=== PATIENT | male | born 1960 | race Caucasian/White ===

== ENCOUNTER 2020-08-26 11:01 | Outpatient (REF) | payer MEDICARE, MEDICAID, SELFPAY | END 2020-08-26 11:02 | disposition home or self-care (01) | LOC: HO.LAB 11:01 | PROVIDERS: Visit Provider Internal Medicine | DX: Z20.822 Contact with and (suspected) exposure to COVID-19 (principal) | CPT/HCPCS: 36415; C9803; U0003; U0005 ==

== ENCOUNTER 2020-09-29 13:37 | Outpatient (REF) | payer MEDICARE, MEDICAID, SELFPAY ==
[2020-09-29 14:22] LABS: MANUAL DIFF FLAG NO
[2020-09-29 14:28] LABS: Basophils Absolute Auto 0.1 X10*3/uL (0.0-0.2); Basophils Percent Auto 0.6 % (0-2); Eosinophils Absolute Auto 0.4 X10*3/uL (0.0-0.4); Eosinophils Percent Auto 3.3 % (0-4); Hematocrit 45.3 % (42-52); Hemoglobin 15.5 g/dl (14.0-18.0); Imm Gran Abs Auto 0.05 X10*3/uL (0.00-0.03); Imm Gran Pct Auto 0.4 % (0.0-0.4); Lymphocytes Absolute Auto 2.9 X10*3/uL (1.2-4.9); Lymphocytes Percent Auto 22.9 % (20-40); Mean Corpuscular HGB Conc 34.2 g/dl (31.0-36.0); Mean Corpuscular Hemoglobin 32.5 pg (27.0-33.0); Mean Platelet Volume 12.2 fL (9.4-12.4); Monocytes Absolute Auto 0.7 X10*3/uL (0.1-1.2); Monocytes Percent Auto 5.4 % (2-11); Neutrophils Absolute Auto 8.6 X10*3/uL (2.0-8.3); Neutrophils Percent Auto 67.4 % (45-73); Platelet Count 253 X10*3/uL (160-400); Red Blood Count 4.77 X10*6/uL (4.60-5.80); Red Cell Distribution Width 14.5 % (11.0-16.0); White Blood Count 12.8 X10*3/uL (4.8-10.8)
[2020-09-29 14:44] LABS: Anion Gap 15 (12-20); Blood Urea Nitrogen 21 mg/dL (9-16); Calcium 9.2 mg/dL (8.4-10.2); Carbon Dioxide 31 mmol/L (22-29); Chloride 100 mmol/L (96-108); Estimated Glomerular Filt Rate > 60; Glucose Random 143 mg/dL (60-115); Potassium 4.6 mmol/L (3.3-5.1); Sodium 141 mmol/L (135-145)
[2020-09-29 15:06] LABS: Thyroid Stimulating Hormone 1.08 uIU/mL (0.32-4.0)
== END 2020-09-29 13:38 | disposition home or self-care (01) ==
LOC: HO.LAB 13:37
PROVIDERS: PCP Internal Medicine; Visit Provider Internal Medicine
DX: Z00.00 Encounter for general adult medical examination without abnormal findings (principal); R51.9 Headache, unspecified; E03.9 Hypothyroidism, unspecified
CPT/HCPCS: 36415; 80048; 84443; 85025

== ENCOUNTER 2021-01-14 09:16 | Outpatient (REF) | payer MEDICARE, MEDICAID, SELFPAY ==
[2021-01-14 10:29] LABS: Estimated Average Glucose 146 mg/dL; Hemoglobin A1c % 6.7 %
[2021-01-14 10:39] LABS: Glucose Fasting 131 mg/dL (60-99)
== END 2021-01-14 09:17 | disposition home or self-care (01) ==
LOC: HO.LAB 09:16
PROVIDERS: PCP Internal Medicine; Visit Provider Internal Medicine
DX: E11.65 Type 2 diabetes mellitus with hyperglycemia (principal)
CPT/HCPCS: 36415; 82947; 83036

== ENCOUNTER 2021-10-01 12:16 | Outpatient (REF) | payer MEDICARE, MEDICAID, SELFPAY ==
[2021-10-01 12:45] LABS: MANUAL DIFF FLAG NO
[2021-10-01 12:54] LABS: Basophils Absolute Auto 0.1 X10*3/uL (0.0-0.2); Basophils Percent Auto 0.7 % (0-2); Eosinophils Absolute Auto 0.2 X10*3/uL (0.0-0.4); Eosinophils Percent Auto 2.2 % (0-4); Hematocrit 39.6 % (42.0-52.0); Hemoglobin 13.6 g/dl (14.0-18.0); Imm Gran Abs Auto 0.03 X10*3/uL (0.00-0.03); Imm Gran Pct Auto 0.3 % (0.0-0.4); Lymphocytes Absolute Auto 3.1 X10*3/uL (1.2-4.9); Lymphocytes Percent Auto 27.8 % (20-40); Mean Corpuscular HGB Conc 34.3 g/dl (31.0-36.0); Mean Corpuscular Hemoglobin 31.9 pg (27.0-33.0); Mean Corpuscular Volume 92.7 fL (80.0-98.0); Mean Platelet Volume 11.6 fL (9.4-12.4); Monocytes Absolute Auto 0.9 X10*3/uL (0.1-1.2); Neutrophils Absolute Auto 6.7 x10*3/uL (2.0-8.3); Platelet Count 225 X10*3/uL (160-400); Red Blood Count 4.27 X10*6/uL (4.60-5.80); Red Cell Distribution Width 15.2 % (11.0-16.0)
[2021-10-01 13:15] LABS: Estimated Average Glucose 120 mg/dL; Hemoglobin A1c % 5.8 %
[2021-10-01 13:55] LABS: Alanine Aminotransferase 132 U/L (0-40); Albumin Level 3.9 g/dL (3.5-5.0); Alkaline Phosphatase 57 U/L (39-117); Anion Gap 14 (12-20); Aspartate Amino Transferase 71 U/L (5-37); Bilirubin Total 0.3 mg/dL (0.0-1.0); Blood Urea Nitrogen 24 mg/dL (9-16); C Reactive Protein 0.71 mg/dL (< or = 0.50); Calcium 9.9 mg/dL (8.4-10.2); Carbon Dioxide 26 mmol/L (22-29); Chloride 106 mmol/L (96-108); Cholesterol 163 mg/dL; Estimated Glomerular Filt Rate > 60; Glucose Fasting 85 mg/dL (60-99); HDL Cholesterol 32 mg/dL; Iron 56 mcg/dL (45-160); LDL Cholesterol Calculated 109 mg/dl; Magnesium 2.1 mg/dL (1.6-2.6); Percent Iron Saturation 22 % (15-50); Potassium 4.5 mmol/L (3.3-5.1); Sodium 141 mmol/L (135-145); Total Iron Binding Capacity 257 mcg/dL (228-428); Total Protein 7.4 g/dL (6.5-8.0); Triglycerides 111 mg/dL; Unsaturated Iron Binding 201 ug/dL
[2021-10-01 14:01] LABS: Folate 19.4 ng/mL (> or = 4.0); Vitamin B12 428 pg/mL (200-900)
== END 2021-10-01 12:17 | disposition home or self-care (01) ==
LOC: HO.LAB 12:16
PROVIDERS: PCP Internal Medicine; Visit Provider Nurse Practitioner Family
DX: Z00.00 Encounter for general adult medical examination without abnormal findings (principal); I63.9 Cerebral infarction, unspecified; E11.40 Type 2 diabetes mellitus with diabetic neuropathy, unspecified
CPT/HCPCS: 36415; 80053; 80061; 82607; 82746; 83036; 83540; 83735; 84100; 85025; 86140

== ENCOUNTER 2022-06-30 14:00 | Outpatient (REF) | payer MEDICARE, MEDICAID, SELFPAY ==
[2022-06-30 14:11] LABS: MANUAL DIFF FLAG NO
[2022-06-30 16:02] LABS: Basophils Absolute Auto 0.1 X10*3/uL (0.0-0.2); Basophils Percent Auto 0.9 % (0-2); Eosinophils Absolute Auto 0.5 X10*3/uL (0.0-0.4); Eosinophils Percent Auto 3.9 % (0-4); Hematocrit 37.3 % (42.0-52.0); Hemoglobin 12.2 g/dl (14.0-18.0); Imm Gran Abs Auto 0.06 X10*3/uL (0.00-0.03); Imm Gran Pct Auto 0.5 % (0.0-0.4); Lymphocytes Absolute Auto 2.8 X10*3/uL (1.2-4.9); Lymphocytes Percent Auto 23.7 % (20-40); Mean Corpuscular HGB Conc 32.7 g/dl (31.0-36.0); Mean Corpuscular Volume 91.9 fL (80.0-98.0); Mean Platelet Volume 11.6 fL (9.4-12.4); Monocytes Absolute Auto 0.8 X10*3/uL (0.1-1.2); Monocytes Percent Auto 6.4 % (2-11); Neutrophils Absolute Auto 7.6 x10*3/uL (2.0-8.3); Neutrophils Percent Auto 64.6 % (45-73); Platelet Count 267 X10*3/uL (160-400); Red Blood Count 4.06 X10*6/uL (4.60-5.80); Red Cell Distribution Width 15.6 % (11.0-16.0); White Blood Count 11.7 X10*3/uL (4.8-10.8)
[2022-06-30 16:14] LABS: Estimated Average Glucose 97 mg/dL
[2022-06-30 16:58] LABS: Alanine Aminotransferase 37 U/L (0-40); Albumin Level 3.4 g/dL (3.5-5.0); Alkaline Phosphatase 79 U/L (39-117); Anion Gap 13 (12-20); Aspartate Amino Transferase 32 U/L (5-37); Bilirubin Total 0.2 mg/dL (0.0-1.0); Blood Urea Nitrogen 28 mg/dL (9-16); Calcium 8.7 mg/dL (8.4-10.2); Carbon Dioxide 28 mmol/L (22-29); Chloride 103 mmol/L (96-108); Cholesterol 146 mg/dL; Estimated Glomerular Filt Rate > 60; Glucose Fasting 137 mg/dL (60-99); Glucose Random 137 mg/dL (60-115); HDL Cholesterol 26 mg/dL; LDL Cholesterol Calculated 74 mg/dl; Potassium 4.4 mmol/L (3.3-5.1); Sodium 140 mmol/L (135-145); Thyroid Stimulating Hormone 1.38 uIU/mL (0.32-4.0); Total Protein 6.7 g/dL (6.5-8.0); Triglycerides 230 mg/dL
== END 2022-06-30 14:01 | disposition home or self-care (01) ==
LOC: HO.LAB 14:00
PROVIDERS: PCP Internal Medicine; Visit Provider Internal Medicine
DX: Z13.0 Encounter for screening for diseases of the blood and blood-forming organs and certain disorders involving the immune mechanism (principal); E11.9 Type 2 diabetes mellitus without complications; E03.9 Hypothyroidism, unspecified; I10 Essential (primary) hypertension; E78.5 Hyperlipidemia, unspecified
CPT/HCPCS: 36415; 80048; 80053; 80061; 83036; 84443; 85025

== ENCOUNTER 2022-07-12 12:12 | Outpatient (REF) | payer MEDICARE, MEDICAID, SELFPAY ==
--- NOTE | ~2022-07-12 | XR_ITS ---
EXAMINATION: CR X-RAY KNEES BILATERAL STANDING, RIGHT KNEE 2 VIEW CLINICAL INFORMATION: Knee pain. COMPARISON: 02/12/2019 knee radiographs. TECHNIQUE: A single view of the bilateral knees standing as well as 2 views of the right knee were obtained. FINDINGS: The patient is status post medial femoral-tibial arthroplasty showing good anatomic alignment and no evidence for hardware malfunction. Mild degenerative joint changes are seen. There is no acute fracture or dislocation. There is no joint effusion. The soft tissues are unremarkable. Moderate to severe atherosclerosis is noted. XR/XR knee RT 2V IMPRESSION: Degenerative joint changes bilaterally. No hardware abnormality. No acute fracture. No significant change.
--- NOTE | ~2022-07-12 | XR_ITS ---
EXAMINATION: CR X-RAY KNEES BILATERAL STANDING, RIGHT KNEE 2 VIEW CLINICAL INFORMATION: Knee pain. COMPARISON: 02/12/2019 knee radiographs. TECHNIQUE: A single view of the bilateral knees standing as well as 2 views of the right knee were obtained. FINDINGS: The patient is status post medial femoral-tibial arthroplasty showing good anatomic alignment and no evidence for hardware malfunction. Mild degenerative joint changes are seen. There is no acute fracture or dislocation. There is no joint effusion. The soft tissues are unremarkable. Moderate to severe atherosclerosis is noted. XR/XR knee standing BI IMPRESSION: Degenerative joint changes bilaterally. No hardware abnormality. No acute fracture. No significant change.
== END 2022-07-12 12:13 | disposition home or self-care (01) ==
LOC: HO.HOSX 12:12
PROVIDERS: Visit Provider Orthopaedic Surgery
DX: M25.561 Pain in right knee (principal); M25.562 Pain in left knee; I10 Essential (primary) hypertension; Z86.73 Personal history of transient ischemic attack (TIA), and cerebral infarction without residual deficits; Z96.651 Presence of right artificial knee joint
CPT/HCPCS: 73560; 73565; 99202

== ENCOUNTER 2022-12-24 12:44 | Emergency (ER) | payer MEDICARE, MEDICAID, SELFPAY ==
--- NOTE | ~2022-12-24 | XR_ITS ---
EXAMINATION: XR CHEST CLINICAL INFORMATION: Chest pain COMPARISON: 11/17/2018 TECHNIQUE: 2 views of the chest were obtained. FINDINGS: Mild opacity at the right base laterally may represent a subtle area of infiltrate. Otherwise lung bryan are felt to be grossly clear. The cardiac silhouette is comparable. There is no failure. The hilar regions do not appear pathologically enlarged. Degenerative change in the thoracic spine. No compression injury. XR/XR chest 2V IMPRESSION: Minimal right lower lobe lateral opacity could represent small area of infiltrate or atelectasis. Attention to follow-up
--- NOTE | 2022-12-24 12:57 | ECG_ITS ---
Test Reason : CHEST PAIN Blood Pressure : / mmHG Vent. Rate : 070 BPM Atrial Rate : 070 BPM P-R Int : 142 ms QRS Dur : 142 ms QT Int : 410 ms P-R-T Axes : 065 -42 008 degrees QTc Int : 442 ms Normal sinus rhythm Left axis deviation Right bundle branch block Possible Lateral infarct (cited on or before 17-NOV-2018) Abnormal ECG When compared with ECG of 17-NOV-2018 16:53, Questionable change in initial forces of Anterior leads T wave inversion now evident in Anterior leads Referred By: Denisa Harvey Electronically Signed By:NIYAH PARTIDA
[2022-12-24 13:05] VITALS: BP 118/76; BP 155/73; PULSE 60; PULSE 69; RESP 17; TEMP 36.4; O2SAT 99; BMI 29.6
[2022-12-24 14:16] VITALS: BP 143/69; PULSE 78; RESP 18; TEMP 36.4; O2SAT 99
[2022-12-24] MEDS: Aspirin Enteric Coated 325 MG TABLET.DR PO (14:20)
--- NOTE | 2022-12-24 14:21 | PC.NURSE ---
pt refused nitroglycerin tab. says it does not help him and gives him headaches
--- NOTE | 2022-12-24 14:29 | ED.CHESTPAIN ---
HPI - Chest Pain General Chief Complaint: Chest Pain Stated Complaint: chest pain Time Seen by Provider: 12/24/22 13:42 Source: patient Mode of arrival: ambulatory History of Present Illness HPI narrative: 62 yold male with pmh of DM, GERD, and HTN and stent presents to the ED with chest pain since 3am. patient denies any leg swelling/calf pain/pleurisy, drug use, or URI symptoms. Related Data Home Medications Medication Instructions Recorded Confirmed blood-glucose meter #1 ea 06/11/20 12/24/22 amlodipine 5 mg tablet 5 mg PO DAILY 10/01/21 12/24/22 metoprolol tartrate 25 mg tablet 25 mg PO DAILY 10/01/21 12/24/22 tamsulosin 0.4 mg capsule 0.4 mg PO DAILY 12/17/21 12/24/22 silver sulfadiazine 1 % topical appl topical DAILY 06/10/22 12/24/22 cream hydrochlorothiazide 25 mg tablet 25 mg PO DAILY 09/10/22 12/24/22 metformin 500 mg tablet,extended 1,000 mg PO BID 09/10/22 12/24/22 release 24 hr Previous Rx's Medication Instructions Recorded polyethylene glycol 3350 17 gram 17 g PO DAILY #100 ea 07/16/20 oral powder packet (Miralax) insulin aspart U-100 100 unit/mL 5 unit (0.05 mL) subcut .COMPLEX 08/25/20 (3 mL) subcutaneous pen #15 mL hydrocortisone 2.5 % topical cream 1 appl GA BID-QID PRN hemorrhoids 10/30/20 with perineal applicator #30 grams (Anusol-HC) blood pressure monitor (Blood #1 ea 10/01/21 Pressure Kit) furosemide 20 mg tablet 20 mg PO DAILY #90 tabs 04/08/22 alcohol swabs 1 pad topical QID diabetes 08/02/22 mellitus #200 ea insulin detemir U-100 100 unit/mL 70 unit (0.7 mL) subcut DAILY #15 08/19/22 (3 mL) subcutaneous pen mL atorvastatin 80 mg tablet 80 mg PO DAILY #90 tabs 08/31/22 omeprazole 40 mg capsule,delayed 40 mg PO DAILY #90 caps 08/31/22 release albuterol sulfate 90 mcg/actuation 2 puff inhalation Q4-6H PRN 03/10/23 aerosol inhaler (Ventolin HFA) shortness of breath or wheezing #8.5 grams chair, wheel (Wheel chair) #1 ea 09/10/22 clopidogrel 75 mg tablet (Plavix) 75 mg PO DAILY #30 tabs 09/13/22 docusate sodium 100 mg capsule 100 mg PO BID #60 caps 09/13/22 lisinopril 10 mg tablet 10 mg PO DAILY #30 tabs 09/13/22 ticagrelor 90 mg tablet (Brilinta) 90 mg PO BID #60 tabs 09/13/22 hydralazine 25 mg tablet 25 mg PO DAILY #90 tabs 10/11/22 adult pull ups #120 ea 10/27/22 lidocaine 5 % topical patch 1 patch topical DAILY #30 ea 10/27/22 pregabalin 150 mg capsule 150 mg PO BID #60 caps 10/28/22 blood sugar diagnostic (FreeStyle #100 strips 10/29/22 Lite Strips) ascorbic acid (vitamin C) 500 mg 500 mg PO DAILY #90 tabs 11/22/22 tablet aspirin 81 mg chewable tablet 1 tab PO DAILY #90 tabs 11/22/22 multivitamin with folic acid 400 1 tab PO DAILY #90 tabs 11/22/22 mcg tablet (Tab-A-Bob) pen needle, diabetic 31 gauge x #50 ea 11/22/2209/16 oxycodone-acetaminophen 5 mg-325 1 tab PO Q8H PRN pain 28 days #84 12/03/22 mg tablet tabs adult briefs #2 12/17/22 chux pads #2 12/17/22 hospital bed #1 12/21/22 doxycycline hyclate 100 mg capsule 100 mg PO BID 7 days #14 [facility] 12/24/22 oxycodone 5 mg capsule 5 mg PO TID PRN pain 3 days #9 [facility] 12/24/22 Allergies Allergy/AdvReac Type Severity Reaction Status Date / Time Penicillins Allergy Intermediate ITCHING/SWE Verified 12/24/22 13:24 LLING Review of Systems Review of Systems: LEft sided chest pain since 3 am. Yes all other systems are reviewed and are negative PMFSH Past Medical History Medical History Back pain Constipation Diabetes mellitus Diabetes mellitus with neuropathy Hyperlipidemia Knee pain, bilateral Obesity Surgical History History of CVA (cerebrovascular accident) History of hemorrhoidectomy History of neck surgery History of surgery History of total right knee replacement (~2012) History of tympanoplasty Family History Family History Father Medical history unknown Mother HIV (human immunodeficiency virus infection) Social History Social History Housing: Apartment Alcohol intake: never Patient Tobacco Use Status: Never used Tobacco Smoked in Last 30 Days: No e-Cigarette/Vaping Use: Never Used Second Hand Smoke Exposure: No Use of substances other than those prescribed or required for medical reasons: No Advance Directives: No Advance Directives Information Provided: Yes service: No Current occupational status: disabled Cognitive needs: Yes (Pt has a walker) Hearing needs: No Vision needs: Yes (Blurred vision) Physical Exam Vital Signs: Vital Signs: Last Vital Signs Temp 97.9 F 12/24/22 17:43 Pulse 75 12/24/22 17:43 Resp 19 12/24/22 17:43 BP 137/51 L 12/24/22 17:43 Pulse Ox 98 12/24/22 17:43 O2 Del Method Room Air 12/24/22 17:43 O2 Flow Rate 1 12/24/22 15:50 Oxygen Flow Rate 2 12/24/22 13:05 BMI result Body Mass Index 29.6 Const: General: cooperative, healthy appearing, comfortable, no acute distress, well developed, alert and awake Orientation/consciousness: oriented to place and oriented to time HEENT: Head: Yes normal to inspection, Yes No palpable skull fracture present, Yes normocephalic and Yes atraumatic Eyes: General: appearance normal, both eyes and all related structures Neck: Neck: Yes normal visual inspection, Yes full ROM, Yes no lymphadenopathy, Yes no meningeal signs, Yes trachea midline, Yes supple, No anterior neck swelling and No tender Chest: Chest palpation & inspection: normal inspection of the chest and normal palpation of entire chest wall Resp: Effort & Inspection: normal respiratory effort and able to speak in complete sentences Auscultation: clear to auscultation bilaterally Cardio: Jugular venous distension: no JVD Heart sounds: S1 normal heart sound present and S2 normal heart sound present GI: Inspection: Yes normal to inspection and No abdominal wall ecchymosis Palpation (GI): Soft to palpation, not firm, nontender, no guarding and not rigid : General: No CVA tenderness and Yes no CVA tenderness Back/Spine/Pelvis: Back: no CVA tenderness, No CVA tenderness and No back tenderness Skin: General skin exam: no rashes or lesions noted and elasticity normal Neuro: General: oriented to place, oriented to time, tone normal, moves all extremities, Normal light touch and pain sensation, no meningeal signs, no focal motor deficits, CN's II-XI intact bilaterally and normal sensation to monofilament Extrem: Other: Positive for mild bilateral pitting edema that is chronic. no calf pain, erythema, or deformities. General: Yes normal to inspection and Yes full ROM Psych: Appearance: grossly normal, well kempt and not disheveled Course Course Course Narrative: Patient have cardiac workup. Patient states he took 81 mg of aspirin at home and took 2 nitro sublinguals at home. Reevaluation(s) Reevaluation #1: Patient given 1 more nitro sublingual at home. Patient given morphine. Patient on oxygen. Patient given aspirin 324. First troponin 72 BNP 279. Chest x-ray shows right small pneumonia. Awaiting 2nd troponin. Receive patient notes from recent cardiology visit and [facility] admission. Patient was discharged from [facility] Nov 23 2022. Patient has had multiple admissions for chest pain with cardiology thought was not due to cardiac pain. Patient had cardiac catheterization in July. Patient has had stents before in the past. As per [facility] note patient's CAD is not amenable to PCI or CABG. Patient given morphine. Patient baseline troponin at [facility] as per [facility] notes is 90. Time: 17:00 Medications Administered Discontinued Medications Generic Name Dose Route Start Last Admin Trade Name Brianne PRN Reason Stop Dose Admin Aspirin 325 mg 12/24/22 13:46 12/24/22 14:20 Aspirin Enteric Coated 325 Mg Tablet. PO 12/24/22 13:47 325 mg ONCE ONE Administration Morphine Sulfate 4 mg 12/24/22 15:13 12/24/22 16:04 Morphine Sulfate 4 Mg/Ml Cartridge IVPUSH 12/24/22 15:14 4 mg ONCE ONE Administration Protocol Nitroglycerin 0.4 mg 12/24/22 13:49 12/24/22 14:21 Nitroglycerin 0.4 Mg Tab.Subl SUBLINGUAL 12/24/22 13:50 Not Given ONCE ONE Medical Decision Making Medical Decision Making MDM Narrative: 62-year-old male with history of diabetes, hypertension, stent placed in the past due to STEMI presents to ED for left-sided chest pain. States no recent trauma, fever, or chills. Patient denies any nausea vomiting. Patient taking aspirin and nitroglycerins at home. Patient given morphine and other nitroglycerin and aspirin 324 during ED visit. Patient vital signs are stable. Patient's troponin is negative for delta change of 50%. EKG from [place] compared to EKG at [facility] recent hospital admission in November negative for any new changes. Chest x-ray shows right-sided pneumonia. Atypical chest presentation. Case was discussed with Dr. Brumfield Push Connector Assembler and supervising attending Dr. Andrade. They agree patient to follow up next week with his miller head. Patient will be discharged with antibiotics and treat as pneumonia. Differential Diagnosis Differential Diagnoses: The differential diagnosis associated with the presentation includes (CHF, pneumonia, PE, myocardial infarction, STEMI,) Admission/Observation Consideration of admission/observation: Escalation of care including admission/observation considered Consult Healthcare Provider Management of the patient was discussed with: Cutter [employer] (Dr. Br[facility]field [facility]) Lab Data MDM Lab Attestation statement: I reviewed the patient's lab results. 12/24/22 14:31 12/24/22 14:31 Labs: Lab Results 12/24/22 12/24/22 12/24/22 Range/Units 14:31 14:31 14:31 WBC 12.7 H (4.8-10.8) X10*3/uL RBC 3.68 L (4.60-5.80) X10*6/uL Hgb 11.0 L (14.0-18.0) g/dl Hct 33.7 L (42.0-52.0) % MCV 91.6 (80.0-98.0) fL MCH 29.9 (27.0-33.0) pg MCHC 32.6 (31.0-36.0) g/dl RDW 17.2 H (11.0-16.0) % Plt Count 296 (160-400) X10*3/uL MPV 11.4 (9.4-12.4) fL Immature Gran % (Auto) 0.6 H (0.0-0.4) % Neut % (Auto) 70.8 (45-73) % Lymph % (Auto) 16.8 L (20-40) % [place] % (Auto) 8.9 (2-11) % Eos % (Auto) 2.4 (0-4) % Baso % (Auto) 0.5 (0-2) % Lymph # (Auto) 2.1 (1.2-4.9) X10*3/uL [place] # (Auto) 1.1 (0.1-1.2) X10*3/uL Eos # (Auto) 0.3 (0.0-0.4) X10*3/uL Baso # (Auto) 0.1 (0.0-0.2) X10*3/uL Abs Immat Gran (auto) 0.07 H (0.00-0.03) X10*3/uL Absolute Neuts (auto) 9.0 H (2.0-8.3) x10*3/uL Absolute Nucleated RBC 0.000 (0.0-0.012) X10*3/uL Nucleated RBC % (auto) 0.0 (0.0-0.2) /100WBC PT (10.0-13.1) SEC INR (0.9-1.1) APTT (26.0-36.4) SEC Sodium 142 (135-145) mmol/L Potassium 4.0 (3.3-5.1) mmol/L Chloride 102 (96-108) mmol/L Carbon Dioxide 28 (22-29) mmol/L Anion Gap 16 (12-20) BUN 66 H (9-16) mg/dL Creatinine 1.30 (0.5-1.4) mg/dL Estim Creat Clear Calc 52.3 Estimated GFR 56 Random Glucose 139 H (60-115) mg/dL Calcium 9.6 D (8.4-10.2) mg/dL Magnesium 2.4 (1.6-2.6) mg/dL Total Bilirubin 0.3 (0.0-1.0) mg/dL AST 14 (5-37) U/L ALT 15 (0-40) U/L Alkaline Phosphatase 89 (39-117) U/L Troponin I High Sens 71.2 H (<3.5-35.0) ng/L B-Natriuretic Peptide (<100) pg/mL Total Protein 7.3 (6.5-8.0) g/dL Albumin 3.3 L (3.5-5.0) g/dL COVID-19 (TY) (Negative) COVID-19 Clin Com 12/24/22 12/24/22 12/24/22 Range/Units 14:31 14:31 15:17 WBC (4.8-10.8) X10*3/uL RBC (4.60-5.80) X10*6/uL Hgb (14.0-18.0) g/dl Hct (42.0-52.0) % MCV (80.0-98.0) fL MCH (27.0-33.0) pg MCHC (31.0-36.0) g/dl RDW (11.0-16.0) % Plt Count (160-400) X10*3/uL MPV (9.4-12.4) fL Immature Gran % (Auto) (0.0-0.4) % Neut % (Auto) (45-73) % Lymph % (Auto) (20-40) % [place] % (Auto) (2-11) % Eos % (Auto) (0-4) % Baso % (Auto) (0-2) % Lymph # (Auto) (1.2-4.9) X10*3/uL [place] # (Auto) (0.1-1.2) X10*3/uL Eos # (Auto) (0.0-0.4) X10*3/uL Baso # (Auto) (0.0-0.2) X10*3/uL Abs Immat Gran (auto) (0.00-0.03) X10*3/uL Absolute Neuts (auto) (2.0-8.3) x10*3/uL Absolute Nucleated RBC (0.0-0.012) X10*3/uL Nucleated RBC % (auto) (0.0-0.2) /100WBC PT 10.6 (10.0-13.1) SEC INR 0.9 (0.9-1.1) APTT 30.2 (26.0-36.4) SEC Sodium (135-145) mmol/L Potassium (3.3-5.1) mmol/L Chloride (96-108) mmol/L Carbon Dioxide (22-29) mmol/L Anion Gap (12-20) BUN (9-16) mg/dL Creatinine (0.5-1.4) mg/dL Estim Creat Clear Calc Estimated GFR Random Glucose (60-115) mg/dL Calcium (8.4-10.2) mg/dL Magnesium (1.6-2.6) mg/dL Total Bilirubin (0.0-1.0) mg/dL AST (5-37) U/L ALT (0-40) U/L Alkaline Phosphatase (39-117) U/L Troponin I High Sens (<3.5-35.0) ng/L B-Natriuretic Peptide 279 H (<100) pg/mL Total Protein (6.5-8.0) g/dL Albumin (3.5-5.0) g/dL COVID-19 (TY) Negative (Negative) COVID-19 Clin Com See Note 12/24/22 Range/Units 16:31 WBC (4.8-10.8) X10*3/uL RBC (4.60-5.80) X10*6/uL Hgb (14.0-18.0) g/dl Hct (42.0-52.0) % MCV (80.0-98.0) fL MCH (27.0-33.0) pg MCHC (31.0-36.0) g/dl RDW (11.0-16.0) % Plt Count (160-400) X10*3/uL MPV (9.4-12.4) fL Immature Gran % (Auto) (0.0-0.4) % Neut % (Auto) (45-73) % Lymph % (Auto) (20-40) % [place] % (Auto) (2-11) % Eos % (Auto) (0-4) % Baso % (Auto) (0-2) % Lymph # (Auto) (1.2-4.9) X10*3/uL [place] # (Auto) (0.1-1.2) X10*3/uL Eos # (Auto) (0.0-0.4) X10*3/uL Baso # (Auto) (0.0-0.2) X10*3/uL Abs Immat Gran (auto) (0.00-0.03) X10*3/uL Absolute Neuts (auto) (2.0-8.3) x10*3/uL Absolute Nucleated RBC (0.0-0.012) X10*3/uL Nucleated RBC % (auto) (0.0-0.2) /100WBC PT (10.0-13.1) SEC INR (0.9-1.1) APTT (26.0-36.4) SEC Sodium (135-145) mmol/L Potassium (3.3-5.1) mmol/L Chloride (96-108) mmol/L Carbon Dioxide (22-29) mmol/L Anion Gap (12-20) BUN (9-16) mg/dL Creatinine (0.5-1.4) mg/dL Estim Creat Clear Calc Estimated GFR Random Glucose (60-115) mg/dL Calcium (8.4-10.2) mg/dL Magnesium (1.6-2.6) mg/dL Total Bilirubin (0.0-1.0) mg/dL AST (5-37) U/L ALT (0-40) U/L Alkaline Phosphatase (39-117) U/L Troponin I High Sens 80.9 H (<3.5-35.0) ng/L B-Natriuretic Peptide (<100) pg/mL Total Protein (6.5-8.0) g/dL Albumin (3.5-5.0) g/dL COVID-19 (TY) (Negative) COVID-19 Clin Com Independent Interpretation I performed an independent interpretation of an: EKG (Normal sinus rhythm. Ventricular rate 70. GA interval 142. QRS 142. QTC 442. Negative STEMI ) and Plain X-Ray Radiology Impression Discussion of test interpretation with radiology: I have reviewed the radiologist's reading. External Record Review External record reviewed: Outpatient record ([facility] cardiology office notes and recent admission.) Prescription Management I considered prescription management with: Pain Medication and Antibiotic Chronic Conditions Patient?s care impacted by: Diabetes and Hypertension Discharge Plan Discharge Clinical Impression: Chest pain, atypical, Pneumonia Patient Disposition: Home, Self-Care Instructions: Chest Pain (ED), Chest Pain (DC), Community Acquired Pneumonia (ED) Additional Instructions: You will be discharged with antibiotics. Please follow-up with your primary care provider and miller head next week. Return to the ED immediately for any calf pain, coughing up blood, chest pain on inspiration, worsening chest pain, weakness, dizziness, fever, chills, or any other concerning symptoms. Prescriptions: New doxycycline hyclate 100 mg capsule 100 mg PO BID 7 Days Qty: 14 0RF oxycodone 5 mg capsule 5 mg PO TID PRN (Reason: pain) 3 Days Qty: 9 0RF Rx Instructions: Partial Fill upon patient request. No Action insulin aspart U-100 100 unit/mL (3 mL) insulin pen 5 unit subcut .COMPLEX Qty: 15 8RF Rx Instructions: 5 units subcut q 6 hours; furosemide 20 mg tablet 20 mg PO DAILY Qty: 90 8RF alcohol swabs Pads, Medicated 1 pad topical QID Qty: 200 8RF insulin detemir U-100 100 unit/mL (3 mL) insulin pen 70 unit subcut DAILY Qty: 15 7RF omeprazole 40 mg capsule,delayed release(DR/EC) 40 mg PO DAILY Qty: 90 8RF atorvastatin 80 mg tablet 80 mg PO DAILY Qty: 90 8RF clopidogrel [Plavix] 75 mg tablet 75 mg PO DAILY Qty: 30 0RF lisinopril 10 mg tablet 10 mg PO DAILY Qty: 30 8RF Brilinta 90 mg tablet 90 mg PO BID Qty: 60 3RF docusate sodium 100 mg capsule 100 mg PO BID Qty: 60 5RF hydralazine 25 mg tablet 25 mg PO DAILY Qty: 90 0RF lidocaine 5 % adhesive patch,medicated 1 patch topical DAILY Qty: 30 3RF Rx Instructions: leave on most painful area for up to 12 hrs (DME) adult pull ups Medium See Rx Instructions .Route .MEDSUPPLY Qty: 120 0RF Rx Instructions: As directed pregabalin 150 mg capsule 150 mg PO BID Qty: 60 0RF (DME) FreeStyle Lite Strips Strip See Rx Instructions .ROUTE .COMPLEX Qty: 100 0RF Dose Instruction: USE TO CHECK TWICE DAILY Rx Instructions: USE TO CHECK TWICE DAILY ascorbic acid (vitamin C) 500 mg tablet 500 mg PO DAILY Qty: 90 8RF (DME) pen needle, diabetic 31 gauge x 3/16 needle See Rx Instructions .ROUTE .MEDSUPPLY Qty: 50 8RF Rx Instructions: As directed aspirin 81 mg tablet,chewable 1 tab PO DAILY Qty: 90 8RF multivitamin with folic acid [Tab-A-Bob] 400 mcg tablet 1 tab PO DAILY Qty: 90 8RF oxycodone-acetaminophen 5-325 mg tablet 1 tab PO Q8H PRN (Reason: pain) 28 Days Qty: 84 0RF Rx Instructions: #84 for 28 days. PARTIAL FILL UPON PATIENT REQUEST -- covering for Dr. Mena - ONE-TIME Rx only (DME) adult briefs large See Rx Instructions .Route .MEDSUPPLY Qty: 2 11RF Rx Instructions: As directed (DME) chux pads See Rx Instructions .Route .MEDSUPPLY Qty: 2 11RF Rx Instructions: As directed ([facility] [place]) hospital bed Kit See Rx Instructions .Route Qty: 1 0RF Rx Instructions: As directed (DME) blood-glucose meter Kit See Rx Instructions .ROUTE QID Qty: 1 Rx Instructions: As directed polyethylene glycol 3350 [Miralax] 17 gram powder in packet 17 g PO DAILY Qty: 100 3RF metoprolol tartrate 25 mg tablet 25 mg PO DAILY amlodipine 5 mg tablet 5 mg PO DAILY (DME) blood pressure monitor [Blood Pressure Kit] Kit See Rx Instructions .Route Qty: 1 0RF Rx Instructions: As directed hydrocortisone [Anusol-HC] 2.5 % cream with perineal applicator 1 appl GA BID-QID PRN (Reason: hemorrhoids) Qty: 30 3RF tamsulosin 0.4 mg capsule 0.4 mg PO DAILY silver sulfadiazine 1 % cream topical DAILY hydrochlorothiazide 25 mg tablet 25 mg PO DAILY metformin 500 mg tablet extended release 24 hr 1,000 mg PO BID albuterol sulfate [Ventolin HFA] 90 mcg/actuation HFA aerosol inhaler 2 puff inhalation Q4-6H PRN (Reason: shortness of breath or wheezing) Qty: 8.5 5RF (DME) Wheel chair Kit See Rx Instructions .Route Qty: 1 0RF Rx Instructions: As directed Interventions: ED Discharge Assessment Last Done: 12/24/22 19:20 Discharge Date/Time: 12/24/22 19:21 Print Language: Portuguese
[2022-12-24 14:36] LABS: MANUAL DIFF FLAG NO
[2022-12-24 14:40] LABS: Basophils Absolute Auto 0.1 X10*3/uL (0.0-0.2); Basophils Percent Auto 0.5 % (0-2); Eosinophils Absolute Auto 0.3 X10*3/uL (0.0-0.4); Eosinophils Percent Auto 2.4 % (0-4); Hematocrit 33.7 % (42.0-52.0); Imm Gran Abs Auto 0.07 X10*3/uL (0.00-0.03); Imm Gran Pct Auto 0.6 % (0.0-0.4); Lymphocytes Absolute Auto 2.1 X10*3/uL (1.2-4.9); Lymphocytes Percent Auto 16.8 % (20-40); Mean Corpuscular HGB Conc 32.6 g/dl (31.0-36.0); Mean Corpuscular Hemoglobin 29.9 pg (27.0-33.0); Mean Corpuscular Volume 91.6 fL (80.0-98.0); Mean Platelet Volume 11.4 fL (9.4-12.4); Monocytes Absolute Auto 1.1 X10*3/uL (0.1-1.2); Monocytes Percent Auto 8.9 % (2-11); Neutrophils Percent Auto 70.8 % (45-73); Platelet Count 296 X10*3/uL (160-400); Red Blood Count 3.68 X10*6/uL (4.60-5.80); Red Cell Distribution Width 17.2 % (11.0-16.0); White Blood Count 12.7 X10*3/uL (4.8-10.8)
[2022-12-24 14:54] LABS: IDNOW Serial# BCCEAD1C
[2022-12-24 14:55] LABS: COVID-19 Test Negative (Negative)
[2022-12-24 14:59] LABS: Alanine Aminotransferase 15 U/L (0-40); Albumin Level 3.3 g/dL (3.5-5.0); Alkaline Phosphatase 89 U/L (39-117); Anion Gap 16 (12-20); Aspartate Amino Transferase 14 U/L (5-37); Bilirubin Total 0.3 mg/dL (0.0-1.0); Blood Urea Nitrogen 66 mg/dL (9-16); Calcium 9.6 mg/dL (8.4-10.2); Carbon Dioxide 28 mmol/L (22-29); Chloride 102 mmol/L (96-108); Creatinine Clr Calc Pharmacy 52.3; Estimated Glomerular Filt Rate 56; Glucose Random 139 mg/dL (60-115); Magnesium 2.4 mg/dL (1.6-2.6); Sodium 142 mmol/L (135-145); Total Protein 7.3 g/dL (6.5-8.0)
[2022-12-24 15:05] LABS: Troponin-I High Sensitivity 71.2 ng/L (<3.5-35.0)
[2022-12-24 15:11] LABS: B Type Natriuretic Peptide 279 pg/mL (<100)
[2022-12-24 15:29] LABS: INTERNATIONAL NORM RATIO 0.9 (0.9-1.1); Prothrombin Time 10.6 SEC (10.0-13.1)
[2022-12-24 15:32] LABS: Partial Thromboplastin Time 30.2 SEC (26.0-36.4)
[2022-12-24 15:50] VITALS: BP 154/65; PULSE 78; RESP 15; TEMP 36.4; O2SAT 100
[2022-12-24] MEDS: Morphine Sulfate 4 MG/ML CARTRIDGE IVPUSH (16:04)
--- NOTE | 2022-12-24 16:20 | MHC.EDTECH ---
pt undressed and placed into hospital clothes. pt cleaned and bed linens changed. allevyn dressing placed above the buttocks, initialed and dated. warm blanket given and call light placed within reach
--- NOTE | 2022-12-24 16:22 | MHC.EDTECH ---
this PCT and another PCT changed patient to hospital attire,cleaned up allevyn padding applied to skin,per RN order.
[2022-12-24 17:20] VITALS: BP 136/61; PULSE 80; RESP 14; TEMP 36.5; O2SAT 100
[2022-12-24 17:35] LABS: Troponin-I High Sensitivity 80.9 ng/L (<3.5-35.0)
[2022-12-24 17:43] VITALS: BP 137/51; PULSE 75; RESP 19; TEMP 36.6; O2SAT 98
== END 2022-12-24 19:21 | disposition home or self-care (01) ==
PROVIDERS: Physician Assistant; Physician Assistant Medical; Emergency Provider Emergency Medicine
DX: J18.9 Pneumonia, unspecified organism (principal); R07.89 Other chest pain; R06.02 Shortness of breath; Z79.899 Other long term (current) drug therapy; Z20.822 Contact with and (suspected) exposure to COVID-19; Z20.828 Contact with and (suspected) exposure to other viral communicable diseases
CPT/HCPCS: 36415; 71046; 80053; 83735; 83880; 84484; 85025; 85610; 85730; 87635; 93005; 96374; 99284; 99285; J2270

== ENCOUNTER 2023-01-05 14:48 | Outpatient (REF) | payer MEDICARE, MEDICAID, SELFPAY | END 2023-01-05 14:49 | disposition home or self-care (01) | LOC: HO.LAB 14:48 | PROVIDERS: PCP Internal Medicine; Visit Provider Internal Medicine | DX: Z13.89 Encounter for screening for other disorder (principal) ==

== ENCOUNTER 2023-01-19 15:32 | Outpatient (AMB) | payer MEDICARE, MEDICAID, SELFPAY ==
[2023-01-19 15:34] VITALS: BP 94/54; PULSE 85
--- NOTE | 2023-01-19 15:34 | A.OFFVIS_ITS ---
Intake Vital Signs 01/19/23 15:34 Height 5 ft BMI Reason not done Patient refused/unable BP 94/54 L Blood Pressure Location Rt brachial Position Sitting Pulse 85 Intake Visit Reasons: Hemorrhage rectum Intake Note: This patient presents for an assessment for rectal bleeding. Patient c/o; Onset 1 1/2 months, rectal bleeding, constipation. Channel Machine Operator Required: No Accompanied by: CLINICAL EXERCISE PHYSIOLOGIST Allergies Penicillins Allergy (Intermediate, Verified 01/19/23 15:40) ITCHING/SWELLING Medication List - Last Reconciled 01/19/23 by Darian Fraire MD [adult briefs As directed] [adult pull ups As directed] albuterol sulfate 90 mcg/actuation (Ventolin HFA) 2 puffs inhalation Q4-6H PRN alcohol swabs 1 pad topical QID amlodipine 5 mg PO DAILY ascorbic acid (vitamin C) 500 mg PO DAILY aspirin 1 tab PO DAILY atorvastatin 80 mg PO DAILY blood pressure monitor (Blood Pressure Kit) As directed blood sugar diagnostic (FreeStyle Lite Strips) USE TO CHECK TWICE DAILY blood-glucose meter As directed chair, wheel (Wheel chair) As directed [chux pads As directed] ciprofloxacin HCl (Cipro) 250 mg PO BID clopidogrel (Plavix) 75 mg PO DAILY docusate sodium 100 mg PO BID doxycycline hyclate 100 mg PO BID 7 days furosemide 20 mg PO DAILY hospital bed As directed hydralazine 25 mg PO DAILY hydrochlorothiazide 25 mg PO DAILY hydrocortisone 2.5% (Anusol-HC) 1 appl [place] BID-QID PRN insulin aspart U-100 5 units subcut q 6 hours; insulin detemir U-100 70 units (0.7 mL) subcut DAILY lidocaine 5% 1 patch topical DAILY lisinopril 10 mg PO DAILY metformin ER 1,000 mg PO BID metoprolol tartrate 25 mg PO DAILY multivitamin with folic acid 400 mcg (Tab-A-Bob) 1 tab PO DAILY omeprazole 40 mg PO DAILY oxycodone 5 mg PO TID PRN 3 days oxycodone-acetaminophen 5-325 mg 1 tab PO Q8H PRN 28 days pen needle, diabetic As directed polyethylene glycol 3350 (Miralax) 17 grams PO DAILY pregabalin 150 mg PO BID silver sulfadiazine 1% appl topical DAILY tamsulosin 0.4 mg PO DAILY ticagrelor (Brilinta) 90 mg PO BID HPI Hemorrhage rectum HPI Details 62-year-old male referred for bleeding per rectum. He has noticed this for about a year now. He says that this is seen when he has a bowel movement and after. He says that this is seen on wiping as well as on the commode He is wheelchair bound because of weakness of both lower extremities. He said he has been wheelchair-bound for about a year. He says that he has hemorrhoids for many years. He states that he had surgery for his hemorrhoids in the distant past He only has 1 bowel movement a week. This is because of him being sure bound with a very poor baseline level of function. He He has multiple medical problems including coronary disease, status post stenting, hypertension, diabetes, hyperlipidemia, smoking and obstructive sleep apnea. He had history of anterior STEMI requiring cardiac catheterization, lad stent and balloon angioplassty last August,. He says he is not on any anticoagulant but of his med list show he is on Brilinta. He denies any pain in his anus. [facility] Medical History Back pain Constipation Diabetes mellitus Diabetes mellitus with neuropathy Hyperlipidemia Knee pain, bilateral Obesity Surgical History History of CVA (cerebrovascular accident) History of hemorrhoidectomy History of neck surgery History of surgery History of total right knee replacement (~2012) History of tympanoplasty Family History Father Medical history unknown Mother HIV (human immunodeficiency virus infection) Social History Housing: Apartment Alcohol intake: never Patient Tobacco Use Status: Never used Tobacco e-Cigarette/Vaping Use: Never Used Second Hand Smoke Exposure: No service: No Current occupational status: disabled Cognitive needs: Yes (Pt has a walker) Hearing needs: No Vision needs: Yes (Blurred vision) Review of Systems Const Denies chills and Denies fever(s) Card Denies chest pain, Denies dyspnea and Denies dyspnea on exertion Resp Denies cough, Denies dyspnea and Denies dyspnea on exertion GI Reports hematochezia, Denies change in bowel habits and Reports constipation Denies hematuria and Denies difficulty urinating Musc Details: Unable to walk, is on a wheelchair for a long history of severe muscle weakness of both lower extremities with neuropathy Denies limited range of motion and Reports muscle weakness Neuro Denies focal weakness and Denies convulsions Psych Denies depression and Denies mood swings Physical Exam Vital Signs: Last Vital Signs Pulse 85 01/19/23 15:34 BP 94/54 L 01/19/23 15:34 Const Other: On wheelchair General: comfortable and no acute distress Orientation/consciousness: patient oriented x3 Neck Neck: Yes no lymphadenopathy Resp Auscultation: clear to auscultation bilaterally Cardio Rhythm: regular rhythm GI Other: Rectal exam shows small external hemorrhoids no fissure Palpation (GI): Soft to palpation, nontender and no guarding Neuro General: patient oriented x3 Extrem Other: Poor muscle strength on both lower extremities common able to bear weight Office Procedures Anoscopy He was in left lateral bo-knife and decubitus position. The anoscope was gently inserted. A full examination of the anal canal was done. Small hemorrhoids, internal external were seen. There was no lesion noted there was no fissure. There was no blood. There was no induration on digital exam. [id number] Assessment & Plan Assessment & Plan (1) Rectal bleeding: Code(s): K62.5 - Hemorrhage of anus and rectum Plan: This is seen on the commode as well as on wiping and is described to be bright blood. This is likely to be from an outlet source with this hemorrhoids. He states however that has never had any colonoscopy in the past. I did explain to him this option to rule out any proximal source. He has a significant multiple medical conditions and if he decides to proceed with colonoscopy, he has to be cleared by his primary care physician and industrial waste inspector 1st. He understands this and says he will discuss this with this primary care physician. Coding Level of Care Code New Pt Level 4 (65163) Diagnoses Rectal bleeding K62.5 CPT Codes Details - CPT: 11970-[id number] ([id number])
== END 2023-01-19 15:56 | disposition home or self-care (01) ==
PROVIDERS: PCP Internal Medicine; Referring Provider Internal Medicine; Visit Provider Surgery
DX: K62.5 Hemorrhage of anus and rectum (principal)
CPT/HCPCS: 46600; 99204

== ENCOUNTER → 2023-01-19 15:32 | Outpatient (BNVA) | payer MEDICARE, MEDICAID, SELFPAY | PROVIDERS: PCP Internal Medicine; Referring Provider Internal Medicine; Visit Provider Surgery | DX: K62.5 Hemorrhage of anus and rectum (principal) | CPT/HCPCS: 46600; 99202 ==

== ENCOUNTER 2023-01-24 13:01 | Outpatient (AMB) | payer MEDICARE, MEDICAID, SELFPAY ==
--- NOTE | 2023-01-24 13:10 | MHC.PC.OV ---
Vital Signs 01/24/23 13:11 Height 5 ft BMI Reason not done Patient refused/unable BP 130/78 Blood Pressure Location Rt brachial Pulse 75 Pulse Source Pulse Oximeter Pulse Oximetry (%) 99 Oxygen Delivery Method Room Air Intake [place] [facility] [place], 2+ pitting edema in feet Intake Note: Patient is here for hospital discharge follow up. Patient was [place] [facility] [place] Client Development Consultant Required: No Energy Systems Engineer: Present Accompanied by: CAR ICER Allergies Penicillins Allergy (Intermediate, Verified 01/24/23 13:11) ITCHING/SWELLING Medication List - Last Reconciled 01/24/23 by Neri Mena MD [adult briefs As directed] [adult pull ups As directed] albuterol sulfate 90 mcg/actuation (Ventolin HFA) 2 puffs inhalation Q4-6H PRN alcohol swabs 1 pad topical QID amlodipine 5 mg PO DAILY ascorbic acid (vitamin C) 500 mg PO DAILY aspirin 1 tab PO DAILY atorvastatin 80 mg PO DAILY blood pressure monitor (Blood Pressure Kit) As directed blood sugar diagnostic (FreeStyle Lite Strips) USE TO CHECK TWICE DAILY blood-glucose meter As directed chair, wheel (Wheel chair) As directed [chux pads As directed] ciprofloxacin HCl (Cipro) 250 mg PO BID clopidogrel (Plavix) 75 mg PO DAILY docusate sodium 100 mg PO BID doxycycline hyclate 100 mg PO BID 7 days furosemide 20 mg PO DAILY hospital bed As directed hydralazine 25 mg PO DAILY hydrochlorothiazide 25 mg PO DAILY hydrocortisone 2.5% (Anusol-HC) 1 appl [place] BID-QID PRN insulin aspart U-100 5 units subcut q 6 hours; insulin detemir U-100 70 units (0.7 mL) subcut DAILY lidocaine 5% 1 patch topical DAILY lisinopril 10 mg PO DAILY metformin ER 1,000 mg PO BID metoprolol tartrate 25 mg PO DAILY multivitamin with folic acid 400 mcg (Tab-A-Bob) 1 tab PO DAILY omeprazole 40 mg PO DAILY oxycodone 5 mg PO TID PRN 3 days oxycodone-acetaminophen 5-325 mg 1 tab PO Q8H PRN 28 days pen needle, diabetic As directed polyethylene glycol 3350 (Miralax) 17 grams PO DAILY pregabalin 150 mg PO BID silver sulfadiazine 1% appl topical DAILY tamsulosin 0.4 mg PO DAILY ticagrelor (Brilinta) 90 mg PO BID Tobacco use date assessed: 01/24/23 Dental Screening Dental Screen Date: 01/24/23 Did you have a dental visit in the last 12 months?: Yes Did you have a dental problem in the last 6 months where you did not have access to dental care?: No Was dental information given to patient?: Patient has dentist [place] [facility] [place], 2+ pitting edema in feet HPI Details [place] [facility] [place] with nephroloih causing some degree of renal impairment; records pending [facility] Medical History Back pain Constipation Diabetes mellitus Diabetes mellitus with neuropathy Hyperlipidemia Knee pain, bilateral Obesity Surgical History History of CVA (cerebrovascular accident) History of hemorrhoidectomy History of neck surgery History of surgery History of total right knee replacement (~2012) History of tympanoplasty Family History Father Medical history unknown Mother HIV (human immunodeficiency virus infection) Social History Housing: Apartment Alcohol intake: never Patient Tobacco Use Status: Never used Tobacco e-Cigarette/Vaping Use: Never Used Second Hand Smoke Exposure: No service: No Current occupational status: disabled Cognitive needs: Yes (Pt has a walker) Hearing needs: No Vision needs: Yes (Blurred vision) Questionnaire PHQ-9 Over the last 2 weeks, how often have you been bothered by any of the following problems? Depression Screening Interpretation: Positive Source: Developed by Drs. Kyle Morin, Sarika Reardon, Hubert Nicholas and colleagues, with an educational luis from [employer]. Thrive Questionnaire Date Thrive assessed: 01/05/23 KAILEE-7 AMB Questionnaire KAILEE-7 Date KAILEE - 7 assessed: 01/05/23 Source: Developed by Drs. Kyle Morin, Sarika Reardon, Hubert Nicholas and colleagues, with an educational luis from [employer]. Review of Systems Const Denies chills, Denies headache(s) and Denies weight loss ENT Denies headache(s) Card Denies chest pain, Denies syncope, Denies irregular heart rhythm and Denies dyspnea Resp Denies chest congestion, Denies cough and Denies dyspnea GI Denies abdominal pain, Denies change in stool character, Denies nausea and Denies vomiting Musc Denies deformity and Denies joint swelling Neuro Denies syncope and Denies headache(s) Physical exam (Primary Care) Vital Signs: Last Vital Signs Pulse 75 01/24/23 13:11 BP 130/78 01/24/23 13:11 Pulse Ox 99 01/24/23 13:11 Oxygen Delivery Method Room Air 01/24/23 13:11 Tobacco/Smoking Status: Tobacco use Status Tobacco use date assessed 01/24/23 01/24/23 13:15 Patient Tobacco Use Status Never used Tobacco 01/24/23 13:15 e-Cigarette/Vaping Use Never Used 01/24/23 13:15 Depression Screening Interpretation: Positive Thrive Assessment: Date of Thrive Assessment Date Thrive assessed 01/05/23 01/24/23 13:15 Const General: cooperative, healthy appearing and no acute distress Orientation/consciousness: oriented to person, oriented to place and oriented to time HENMT Head: Yes normal to inspection, Yes normocephalic and Yes atraumatic Mouth: Normal oral and palatal mucosa present and tongue normal Throat: Yes posterior oropharynx normal and Yes uvula midline Eyes General: appearance normal, both eyes and all related structures Neck Neck: Yes normal visual inspection, Yes full ROM and Yes no lymphadenopathy Thyroid: Thyroid normal Carotids: normal carotid upstroke Chest Chest palpation & inspection: normal inspection of the chest Resp Effort & Inspection: normal respiratory effort and able to speak in complete sentences Auscultation: clear to auscultation bilaterally Cardio Jugular venous distension: no JVD Palpation: normal PMI Rate: regular rate Rhythm: regular rhythm Heart sounds: S1 normal heart sound present and S2 normal heart sound present GI Inspection: Yes normal to inspection Palpation (GI): Soft to palpation and No hepatosplenomegaly present Auscultation: normal bowel sounds General: Yes no CVA tenderness Back/Spine/Pelvis Back: no CVA tenderness Skin General skin exam: no rashes or lesions noted Neuro General: oriented to person, oriented to place and oriented to time Extrem General: Yes normal to inspection and Yes full ROM Assessment and Plan Assessment & Plan (1) Nephrolithiasis: Code(s): N20.0 - Calculus of kidney Plan: ref urol Orders: Orders Basic Metabolic Panel Today N28.9 - Disorder of kidney and ureter, unspecified Referrals Urology Referral N20.0 - Calculus of kidney Coding Level of Care Code Est Pt Level 3 (58270) Diagnoses Nephrolithiasis N20.0
[2023-01-24 13:11] VITALS: BP 130/78; PULSE 75; O2SAT 99
== END 2023-01-24 13:35 | disposition home or self-care (01) ==
PROVIDERS: PCP Internal Medicine; Visit Provider Internal Medicine
DX: N20.0 Calculus of kidney (principal)
CPT/HCPCS: 99213

== ENCOUNTER 2023-01-24 13:29 | Outpatient (REF) | payer MEDICARE, MEDICAID, SELFPAY ==
[2023-01-24 14:49] LABS: Anion Gap 13 (12-20); Blood Urea Nitrogen 54 mg/dL (9-16); Calcium 8.9 mg/dL (8.4-10.2); Carbon Dioxide 26 mmol/L (22-29); Chloride 104 mmol/L (96-108); Estimated Glomerular Filt Rate 47; Glucose Random 92 mg/dL (60-115); Potassium 4.3 mmol/L (3.3-5.1); Sodium 139 mmol/L (135-145)
== END 2023-01-24 13:30 | disposition home or self-care (01) ==
LOC: HO.LAB 13:29
PROVIDERS: PCP Internal Medicine; Visit Provider Internal Medicine
DX: N28.9 Disorder of kidney and ureter, unspecified (principal)
CPT/HCPCS: 36415; 80048

== ENCOUNTER 2023-02-14 14:30 | Outpatient (AMB) | payer MEDICARE, MEDICAID, SELFPAY ==
--- NOTE | 2023-02-14 14:33 | A.OFFPC_ITS ---
Vital Signs 02/14/23 14:34 Height 5 ft BMI Reason not done Patient refused/unable BP 140/70 H Blood Pressure Location Rt brachial Position Sitting Pulse 68 Pulse Source Pulse Oximeter Pulse Oximetry (%) 97 Oxygen Delivery Method Room Air Intake Visit Reasons: HD [facility] 02/02/23-Stroke Intake Note: Patient is here for hospital discharge follow up. Patient was discharged from [facility] on 02/11/23. Production Team Manager Required: No Heavy Duty Custodian: Present Accompanied by: FACILITY ADMINISTRATOR Allergies Penicillins Allergy (Intermediate, Verified 02/14/23 14:33) ITCHING/SWELLING Medication List - Last Reconciled 02/15/23 by Neri Mena MD [adult briefs As directed] [adult pull ups As directed] albuterol sulfate 90 mcg/actuation (Ventolin HFA) 2 puffs inhalation Q4-6H PRN alcohol swabs 1 pad topical QID amlodipine 5 mg PO DAILY ascorbic acid (vitamin C) 500 mg PO DAILY aspirin 1 tab PO DAILY atorvastatin 80 mg PO DAILY blood pressure monitor (Blood Pressure Kit) As directed blood sugar diagnostic (FreeStyle Lite Strips) USE TO CHECK TWICE DAILY blood-glucose meter As directed chair, wheel (Wheel chair) As directed [chux pads As directed] ciprofloxacin HCl (Cipro) 250 mg PO BID clopidogrel (Plavix) 75 mg PO DAILY docusate sodium 100 mg PO BID doxycycline hyclate 100 mg PO BID 7 days furosemide 20 mg PO DAILY hospital bed As directed hydralazine 25 mg PO DAILY hydrochlorothiazide 25 mg PO DAILY hydrocortisone 2.5% (Anusol-HC) 1 appl [place] BID-QID PRN insulin aspart U-100 5 units subcut q 6 hours; insulin detemir U-100 70 units (0.7 mL) subcut DAILY lidocaine 5% 1 patch topical DAILY lisinopril 10 mg PO DAILY metformin ER 1,000 mg PO BID metoprolol tartrate 25 mg PO DAILY multivitamin with folic acid 400 mcg (Tab-A-Bob) 1 tab PO DAILY omeprazole 40 mg PO DAILY oxycodone 5 mg PO TID PRN 3 days oxycodone-acetaminophen 5-325 mg 1 tab PO Q8H PRN 28 days pen needle, diabetic As directed polyethylene glycol 3350 (Miralax) 17 grams PO DAILY pregabalin 150 mg PO BID silver sulfadiazine 1% appl topical DAILY Slide Board As directed tamsulosin 0.4 mg PO DAILY ticagrelor (Brilinta) 90 mg PO BID Tobacco use date assessed: 02/14/23 HPI HD [facility] 02/02/23-Stroke HPI Details cva at ; left arm and both leg paresis; getting home PT [facility] Medical History Back pain Constipation Diabetes mellitus Diabetes mellitus with neuropathy Hyperlipidemia Knee pain, bilateral Obesity Surgical History History of CVA (cerebrovascular accident) History of hemorrhoidectomy History of neck surgery History of surgery History of total right knee replacement (~2012) History of tympanoplasty Family History Father Medical history unknown Mother HIV (human immunodeficiency virus infection) Social History Housing: Apartment Alcohol intake: never Patient Tobacco Use Status: Never used Tobacco e-Cigarette/Vaping Use: Never Used Second Hand Smoke Exposure: No service: No Current occupational status: disabled Cognitive needs: Yes (Pt has a walker) Hearing needs: No Vision needs: Yes (Blurred vision) Questionnaire PHQ-9 Over the last 2 weeks, how often have you been bothered by any of the following problems? Depression Screening Interpretation: Positive Source: Developed by Drs. Kyle Morin, Sarika Reardon, Hubert Nicholas and colleagues, with an educational luis from [employer]. Thrive Questionnaire Date Thrive assessed: 01/05/23 KAILEE-7 AMB Questionnaire KAILEE-7 Date KAILEE - 7 assessed: 01/05/23 Source: Developed by Drs. Kyle Morin, Sarika Reardon, Hubert Nicholas and colleagues, with an educational luis from [employer]. Review of Systems Const Denies chills, Denies headache(s) and Denies weight loss ENT Denies headache(s) Card Denies chest pain, Denies syncope, Denies irregular heart rhythm and Denies dyspnea Resp Denies chest congestion, Denies cough and Denies dyspnea GI Denies abdominal pain, Denies change in stool character, Denies nausea and Denies vomiting Musc Denies deformity and Denies joint swelling Neuro Denies syncope and Denies headache(s) Physical exam (Primary Care) Vital Signs: Last Vital Signs Pulse 68 02/14/23 14:34 BP 140/70 H 02/14/23 14:34 Pulse Ox 97 02/14/23 14:34 Oxygen Delivery Method Room Air 02/14/23 14:34 Tobacco/Smoking Status: Tobacco use Status Tobacco use date assessed 02/14/23 02/14/23 14:38 Patient Tobacco Use Status Never used Tobacco 02/14/23 14:38 e-Cigarette/Vaping Use Never Used 02/14/23 14:38 Depression Screening Interpretation: Positive Thrive Assessment: Date of Thrive Assessment Date Thrive assessed 01/05/23 02/14/23 14:38 Const General: cooperative, healthy appearing and no acute distress Orientation/consciousness: oriented to person, oriented to place and oriented to time HENMT Head: Yes normal to inspection, Yes normocephalic and Yes atraumatic Mouth: Normal oral and palatal mucosa present and tongue normal Throat: Yes posterior oropharynx normal and Yes uvula midline Eyes General: appearance normal, both eyes and all related structures Neck Neck: Yes normal visual inspection, Yes full ROM and Yes no lymphadenopathy Thyroid: Thyroid normal Carotids: normal carotid upstroke Chest Chest palpation & inspection: normal inspection of the chest Resp Effort & Inspection: normal respiratory effort and able to speak in complete sentences Auscultation: clear to auscultation bilaterally Cardio Jugular venous distension: no JVD Palpation: normal PMI Rate: regular rate Rhythm: regular rhythm Heart sounds: S1 normal heart sound present and S2 normal heart sound present GI Inspection: Yes normal to inspection Palpation (GI): Soft to palpation and No hepatosplenomegaly present Auscultation: normal bowel sounds General: Yes no CVA tenderness Back/Spine/Pelvis Back: no CVA tenderness Skin General skin exam: no rashes or lesions noted Neuro General: oriented to person, oriented to place and oriented to time Extrem General: Yes normal to inspection and Yes full ROM Assessment and Plan Assessment & Plan (1) CVA (cerebral vascular accident): Code(s): I63.9 - Cerebral infarction, unspecified Plan: cont pt Coding Level of Care Code Est Pt Level 3 (85763) Diagnoses CVA (cerebral vascular accident) I63.9
[2023-02-14 14:34] VITALS: BP 140/70; PULSE 68; O2SAT 97
== END 2023-02-14 14:52 | disposition home or self-care (01) ==
PROVIDERS: PCP Internal Medicine; Visit Provider Internal Medicine
DX: I63.9 Cerebral infarction, unspecified (principal)
CPT/HCPCS: 99213

== ENCOUNTER 2023-04-12 10:43 | Outpatient (AMB) | payer MEDICARE, MEDICAID, SELFPAY ==
[2023-04-12 10:51] VITALS: BP 116/70; PULSE 59; O2SAT 98
--- NOTE | 2023-04-12 10:51 | MHC.PC.OV ---
Vital Signs 04/12/23 10:51 Height 5 ft BMI Reason not done Patient refused/unable BP 116/70 Blood Pressure Location Lt brachial Position Sitting Pulse 59 Pulse Source Pulse Oximeter Pulse Oximetry (%) 98 Oxygen Delivery Method Room Air Intake Visit Reasons: 3mth f/u Medications Programming Specialist: Not Required per policy Accompanied by: Self / Same As Patient Allergies Penicillins Allergy (Intermediate, Verified 04/12/23 10:51) ITCHING/SWELLING Medication List - Last Reconciled 04/12/23 by Neri Mena MD [adult briefs As directed] [adult pull ups As directed] albuterol sulfate 90 mcg/actuation (Ventolin HFA) 2 puffs inhalation Q4-6H PRN alcohol swabs 1 pad topical QID amlodipine 5 mg PO DAILY ascorbic acid (vitamin C) 500 mg PO DAILY aspirin 1 tab PO DAILY blood pressure monitor (Blood Pressure Kit) As directed blood sugar diagnostic (FreeStyle Lite Strips) USE TO CHECK TWICE DAILY blood-glucose meter As directed chair, wheel (Wheel chair) As directed [chux pads As directed] ciprofloxacin HCl (Cipro) 250 mg PO BID clopidogrel (Plavix) 75 mg PO DAILY clotrimazole-betamethasone 1-0.05 % 1 appl topical BID 2 weeks docusate sodium 100 mg PO BID doxycycline hyclate 100 mg PO BID 7 days furosemide 20 mg PO DAILY hospital bed As directed hydralazine 25 mg PO DAILY hydrochlorothiazide 25 mg PO DAILY hydrocortisone 2.5% (Anusol-HC) 1 appl MD BID-QID PRN insulin aspart U-100 5 units subcut q 6 hours; insulin detemir U-100 70 units (0.7 mL) subcut DAILY lidocaine 5% 1 patch topical DAILY lisinopril 10 mg PO DAILY metoprolol tartrate 25 mg PO DAILY multivitamin with folic acid 400 mcg (Tab-A-Bob) 1 tab PO DAILY omeprazole 40 mg PO DAILY oxycodone 5 mg PO TID PRN 3 days oxycodone-acetaminophen 5-325 mg 1 tab PO Q8H PRN 28 days pen needle, diabetic As directed polyethylene glycol 3350 (Miralax) 17 grams PO DAILY pregabalin 150 mg PO BID silver sulfadiazine 1% appl topical DAILY Slide Board As directed tamsulosin 0.4 mg PO DAILY ticagrelor (Brilinta) 90 mg PO BID Tobacco use date assessed: 02/14/23 Dental Screening Dental Screen Date: 04/12/23 Did you have a dental visit in the last 12 months?: Yes Did you have a dental problem in the last 6 months where you did not have access to dental care?: No Was dental information given to patient?: Patient has dentist HPI 3mth f/u Medications HPI Details HTN DM and BPH PFSH Medical History Knee pain, bilateral Back pain Obesity Diabetes mellitus with neuropathy Diabetes mellitus Constipation Hyperlipidemia Surgical History History of total right knee replacement (~2012) History of neck surgery History of hemorrhoidectomy History of surgery History of CVA (cerebrovascular accident) History of tympanoplasty Family History Father Medical history unknown Mother HIV (human immunodeficiency virus infection) Social History Housing: Apartment Alcohol intake: never Patient Tobacco Use Status: Never used Tobacco e-Cigarette/Vaping Use: Never Used Second Hand Smoke Exposure: No service: No Current occupational status: disabled Cognitive needs: Yes (Pt has a walker) Hearing needs: No Vision needs: Yes (Blurred vision) Questionnaire PHQ-9 Over the last 2 weeks, how often have you been bothered by any of the following problems? Depression Screening Interpretation: Positive Depression Screening Done: Yes Source: Developed by Drs. Kyle Morin, Hubert Soto and colleagues, with an educational luis from [employer]. Thrive Questionnaire Date Thrive assessed: 01/05/23 AUDIT C Alcohol Use Questionnaire (AUDIT-C) 1. How often do you have a drink containing alcohol?: Never 3. How often do you have six or more drinks on one occasion?: Never Total Score: 0 Score Reviewed/Action Taken: Yes KAILEE-7 AMB Questionnaire KAILEE-7 Date KAILEE - 7 assessed: 01/05/23 Source: Developed by Sarika Meneses Kurt Kroenke and colleagues, with an educational luis from [employer]. Review of Systems Const Denies chills, Denies headache(s) and Denies weight loss ENT Denies headache(s) Card Denies chest pain, Denies syncope, Denies irregular heart rhythm and Denies dyspnea Resp Denies chest congestion, Denies cough and Denies dyspnea GI Denies abdominal pain, Denies change in stool character, Denies nausea and Denies vomiting Musc Denies deformity and Denies joint swelling Neuro Denies syncope and Denies headache(s) Physical exam (Primary Care) Vital Signs: Last Vital Signs Pulse 59 04/12/23 10:51 BP 116/70 04/12/23 10:51 Pulse Ox 98 04/12/23 10:51 Oxygen Delivery Method Room Air 04/12/23 10:51 Tobacco/Smoking Status: Tobacco use Status Tobacco use date assessed 02/14/23 04/12/23 10:52 Patient Tobacco Use Status Never used Tobacco 04/12/23 10:52 e-Cigarette/Vaping Use Never Used 04/12/23 10:52 Depression Screening Interpretation: Positive Thrive Assessment: Date of Thrive Assessment Date Thrive assessed 01/05/23 04/12/23 10:52 Const General: cooperative, comfortable, no acute distress and alert Neck Neck: Yes no lymphadenopathy Thyroid: Thyroid normal Resp Effort & Inspection: normal respiratory effort Auscultation: clear to auscultation bilaterally Percussion: percussion normal Cardio Jugular venous distension: no JVD Palpation: normal PMI Rate: regular rate Rhythm: regular rhythm Heart sounds: S1 normal heart sound present and S2 normal heart sound present GI Inspection: Yes normal to inspection Palpation (GI): No hepatosplenomegaly present Skin General skin exam: no rashes or lesions noted Extrem General: Yes no clubbing, cyanosis or edema Assessment and Plan Assessment & Plan (1) Diabetes mellitus with neuropathy: Code(s): E11.40 - Type 2 diabetes mellitus with diabetic neuropathy, unspecified Plan: same rx; do labs (2) Hyperlipidemia: Code(s): E78.5 - Hyperlipidemia, unspecified Plan: stable; same rx (3) Hypertension: Code(s): I10 - Essential (primary) hypertension Plan: stable; same rx Orders: Referrals Podiatry Referral E11.40 - Type 2 diabetes mellitus with diabetic neuropathy, unspecified Neurology Referral R56.9 - Unspecified convulsions Coding Level of Care Code Est Pt Level 4 (68994) Diagnoses Diabetes mellitus with neuropathy E11.40 Hyperlipidemia E78.5 Hypertension I10
== END 2023-04-12 11:19 | disposition home or self-care (01) ==
PROVIDERS: PCP Internal Medicine; Visit Provider Internal Medicine
DX: E11.40 Type 2 diabetes mellitus with diabetic neuropathy, unspecified (principal); E78.5 Hyperlipidemia, unspecified; I10 Essential (primary) hypertension
CPT/HCPCS: 99214

== ENCOUNTER 2023-08-25 15:11 | Emergency (ER) | payer MEDICARE, MEDICAID, SELFPAY ==
--- NOTE | ~2023-08-25 | XR_ITS ---
EXAMINATION: XR CHEST CLINICAL INFORMATION: Altered mental status COMPARISON: 12/24/2022 TECHNIQUE: Frontal view of the chest was obtained. FINDINGS: Given AP portable technique, lungs are considered grossly clear. There is a skinfold overlying the left lower chest. Heart and pulmonary vessels are normal. There is degenerative change of both shoulders. XR/XR chest 1V IMPRESSION: No active disease given technical limitations.
[2023-08-25 15:26] VITALS: BP 96/36; PULSE 79; RESP 16; TEMP 36.6; O2SAT 99
--- NOTE | 2023-08-25 15:37 | ED.AMS ---
HPI - Altered Mental Status General Chief Complaint: Altered Mental Status Stated Complaint: UNRESPONSIVE FROM MD OFFICE PER EMS Time Seen by Provider: 08/25/23 15:26 Source: EMS Mode of arrival: EMS Limitations: altered mental status History of Present Illness HPI narrative: Patient recently discharged from the hospital, was at his PMD in the office and was found to be unresponsive, EMS was called MD complaint: decreased responsiveness Onset (ago): minute(s) Severity: severe Context: seizure disorder Related Data Home Medications Medication Instructions Recorded Confirmed blood-glucose meter #1 ea 06/11/20 04/12/23 amlodipine 5 mg tablet 5 mg PO DAILY 10/01/21 04/12/23 metoprolol tartrate 25 mg tablet 25 mg PO DAILY 10/01/21 04/12/23 tamsulosin 0.4 mg capsule 0.4 mg PO DAILY 12/17/21 04/12/23 silver sulfadiazine 1 % topical appl topical DAILY 06/10/22 04/12/23 cream hydrochlorothiazide 25 mg tablet 25 mg PO DAILY 09/10/22 04/12/23 Previous Rx's Medication Instructions Recorded insulin aspart U-100 100 unit/mL 5 unit (0.05 mL) subcut .COMPLEX 08/25/20 (3 mL) subcutaneous pen #15 mL blood pressure monitor (Blood #1 ea 10/01/21 Pressure Kit) alcohol swabs 1 pad topical QID diabetes 08/02/22 mellitus #200 ea omeprazole 40 mg capsule,delayed 40 mg PO DAILY #90 caps 08/31/22 release chair, wheel (Wheel chair) #1 ea 09/10/22 clopidogrel 75 mg tablet (Plavix) 75 mg PO DAILY #30 tabs 09/13/22 hydralazine 25 mg tablet 25 mg PO DAILY #90 tabs 10/11/22 adult pull ups #120 ea 10/27/22 blood sugar diagnostic (FreeStyle #100 strips 10/29/22 Lite Strips) ascorbic acid (vitamin C) 500 mg 500 mg PO DAILY #90 tabs 11/22/22 tablet aspirin 81 mg chewable tablet 1 tab PO DAILY #90 tabs 11/22/22 multivitamin with folic acid 400 1 tab PO DAILY #90 tabs 11/22/22 mcg tablet (Tab-A-Bob) pen needle, diabetic 31 gauge x #50 ea 11/22/2209/16 chux pads #2 ea 12/17/22 hospital bed #1 ea 12/21/22 doxycycline hyclate 100 mg capsule 100 mg PO BID 7 days #14 caps 12/24/22 oxycodone 5 mg capsule 5 mg PO TID PRN pain 3 days #9 caps 12/24/22 docusate sodium 100 mg capsule 100 mg PO BID #60 caps 01/18/23 polyethylene glycol 3350 17 gram 17 g PO DAILY #100 ea 01/18/23 oral powder packet (Miralax) Slide Board #1 ea 02/10/23 hydrocortisone 2.5 % topical cream 1 appl [place] BID-QID PRN hemorrhoids 02/15/23 with perineal applicator #30 grams (Anusol-HC) ciprofloxacin HCl 250 mg tablet 250 mg PO BID #10 tabs 02/18/23 (Cipro) adult briefs #2 ea 03/08/23 lidocaine 5 % topical patch 1 patch topical DAILY #30 ea 03/20/23 lisinopril 10 mg tablet 10 mg PO DAILY #30 tabs 03/21/23 insulin detemir U-100 100 unit/mL 70 unit (0.7 mL) subcut DAILY #15 03/30/23 (3 mL) subcutaneous pen mL clotrimazole-betamethasone 1 1 appl topical BID 2 weeks #45 03/31/23 %-0.05 % topical cream grams furosemide 20 mg tablet 20 mg PO DAILY #90 tabs 04/26/23 Grab bar #1 05/03/23 Slide Board #1 ea 05/03/23 Transfer Bench #1 05/03/23 shower bench #1 05/03/23 ticagrelor 90 mg tablet (Brilinta) 90 mg PO BID #60 tabs 05/11/23 ondansetron HCl 4 mg tablet 4 mg PO Q6H PRN nausea and 05/13/23 vomiting #30 tabs albuterol sulfate 90 mcg/actuation 2 puff inhalation Q4-6H PRN 07/27/23 aerosol inhaler (Ventolin HFA) shortness of breath or wheezing 30 days #8.5 grams pregabalin 150 mg capsule 150 mg PO BID #60 caps 08/01/23 oxycodone-acetaminophen 5 mg-325 1 tab PO Q8H PRN pain 28 days #84 02/02/24 mg tablet tabs levofloxacin 500 mg tablet 500 mg PO DAILY 7 days #7 tabs 08/25/23 Allergies Allergy/AdvReac Type Severity Reaction Status Date / Time Penicillins Allergy Intermediate ITCHING/SWE Verified 08/25/23 14:49 LLING Review of Systems Review of Systems: Yes Unobtainable due to mental status Neurologic: Denies Sensory deficit (Neuro) [facility] Past Medical History Medical History Knee pain, bilateral Back pain Obesity Diabetes mellitus with neuropathy Diabetes mellitus Constipation Hyperlipidemia Surgical History History of total right knee replacement (~2012) History of neck surgery History of hemorrhoidectomy History of surgery History of CVA (cerebrovascular accident) History of tympanoplasty Family History Family History Father Medical history unknown Mother HIV (human immunodeficiency virus infection) Social History Social History Housing: Apartment Alcohol intake: never Patient Tobacco Use Status: Never used Tobacco e-Cigarette/Vaping Use: Never Used Second Hand Smoke Exposure: No Use of substances other than those prescribed or required for medical reasons: Yes Advance Directives: No Advance Directives Information Provided: No service: No Current occupational status: disabled Cognitive needs: Yes (Pt has a walker) Hearing needs: No Vision needs: Yes (Blurred vision) Physical Exam ED Vital Signs: Vital Signs - 24 hr 08/25/23 15:26 08/25/23 15:42 08/25/23 17:52 Temperature 97.9 F 98.6 F Pulse Rate 79 78 76 Respiratory Rate 16 15 12 Blood Pressure 96/36 L 96/39 L 119/51 L Pulse Oximetry 99 98 99 Oxygen Delivery Method Room Air Room Air Room Air 08/25/23 20:14 Temperature Pulse Rate 74 Respiratory Rate 10 L Blood Pressure 109/48 L Pulse Oximetry 98 Oxygen Delivery Method Room Air BMI result Body Mass Index 24.0 Const Other: obese male with lethargy, minimally responsive Nutritional Appearance: obese Limitations: altered mental status HENMT Head: Yes normal to inspection Ears: external ears normal General nose exam: Normal external nose present Mouth: Normal oral and palatal mucosa present and oropharynx normal Throat: Yes posterior oropharynx normal Eyes General: appearance normal, both eyes and all related structures Neck Neck: Yes normal visual inspection Chest Chest palpation & inspection: normal inspection of the chest Resp Auscultation: clear to auscultation bilaterally Cardio Jugular venous distension: no JVD Rate: regular rate Rhythm: regular rhythm Heart sounds: S1 normal heart sound present and S2 normal heart sound present GI Inspection: Yes normal to inspection Palpation (GI): Soft to palpation, nontender and No hepatosplenomegaly present Auscultation: normal bowel sounds General: Yes no CVA tenderness Back/Spine/Pelvis Back: no CVA tenderness Skin General skin exam: no rashes or lesions noted Neuro Sensory Exam: No Sensory deficit (Neuro) Extrem General: Yes normal to inspection Psych Appearance: grossly normal Course Reevaluation(s) Reevaluation #1: Patient with a history of seizure disorder on keppra Time: 15:55 Reevaluation #2: Patient back to baseline will dc home, likely seizure, will start levaquin for UTI Time: 20:31 Medications Administered Discontinued Medications Generic Name Dose Route Start Last Admin Trade Name Freq PRN Reason Stop Dose Admin Sodium Chloride 1,000 mls @ 500 mls/hr 08/25/23 15:45 08/25/23 20:25 Ns IVCONT 08/25/23 17:44 Infused .Q2H ADRIAN Infusion Oxycodone HCl 5 mg 08/25/23 20:25 08/25/23 20:28 Oxycodone Hcl Immed Release 5 Mg Tablet PO 08/25/23 20:26 5 mg ONCE ONE Administration Medical Decision Making Differential Diagnosis Differential Diagnoses: The differential diagnosis associated with the presentation includes (seizure, UTI, electrolyte abnormality, pneumonia) Admission/Observation Consideration of admission/observation: Escalation of care including admission/observation considered (upon arrival patient was considered for admission) Lab Data Elevated WBC seen and Urine is dirty 08/25/23 15:58 08/25/23 15:58 Labs: Lab Results 08/25/23 08/25/23 08/25/23 Range/Units 15:47 15:58 20:19 WBC 14.5 H (4.8-10.8) X10*3/uL RBC 4.11 L (4.60-5.80) X10*6/uL Hgb 12.4 L (14.0-18.0) g/dl Hct 37.8 L (42.0-52.0) % MCV 92.0 (80.0-98.0) fL MCH 30.2 (27.0-33.0) pg MCHC 32.8 (31.0-36.0) g/dl RDW 15.4 (11.0-16.0) % Plt Count 330 (160-400) X10*3/uL MPV 11.8 (9.4-12.4) fL Immature Gran % (Auto) 0.9 H (0.0-0.4) % Neut % (Auto) 72.0 (45-73) % Lymph % (Auto) 14.9 L (20-40) % [place] % (Auto) 6.3 (2-11) % Eos % (Auto) 5.2 H (0-4) % Baso % (Auto) 0.7 (0-2) % Lymph # (Auto) 2.2 (1.2-4.9) X10*3/uL [place] # (Auto) 0.9 (0.1-1.2) X10*3/uL Eos # (Auto) 0.8 H (0.0-0.4) X10*3/uL Baso # (Auto) 0.1 (0.0-0.2) X10*3/uL Abs Immat Gran (auto) 0.13 H (0.00-0.03) X10*3/uL Absolute Neuts (auto) 10.5 H (2.0-8.3) x10*3/uL Absolute Nucleated RBC 0.000 (0.0-0.012) X10*3/uL Nucleated RBC % (auto) 0.0 (0.0-0.2) /100WBC Sodium 142 (135-145) mmol/L Potassium 4.3 (3.3-5.1) mmol/L Chloride 102 (96-108) mmol/L Carbon Dioxide 28 (22-29) mmol/L Anion Gap 16 (12-20) BUN 34 H (9-16) mg/dL Creatinine 1.27 (0.5-1.4) mg/dL Estim Creat Clear Calc 59.0 Estimated GFR 58 POC Glucose 219 H (60-115) mg/dL Random Glucose 219 H (60-115) mg/dL Calcium 9.2 (8.4-10.2) mg/dL Total Bilirubin 0.2 (0.0-1.0) mg/dL AST 26 (5-37) U/L ALT 28 (0-40) U/L Alkaline Phosphatase 98 (39-117) U/L Total Protein 7.7 (6.5-8.0) g/dL Albumin 3.4 L (3.5-5.0) g/dL Urine Color Yellow Urine Appearance Clear Urine pH 6.0 (5.0-9.0) Ur Specific Pound 1.010 (1.005-1.025) Urine Protein Trace (Neg-Trace) mg/dL Urine Glucose (UA) 500 H (Negative) mg/dL Urine Ketones Negative (Negative) mg/dL Urine Blood Trace H (Negative) Urine Nitrite Negative (Negative) Ur Leukocyte Esterase Small (1+) H (Negative) Urine RBC 3-5 H (0-2) /HPF Urine WBC 11-20 H (0-5) /HPF Ur Squamous Epith Cells 0-2 (0-2) /HPF Urine Bacteria 4+ (None Seen) Hyaline Casts 0-2 (0-2) /LPF Independent Interpretation I performed an independent interpretation of an: Plain X-Ray (CXR no infiltrate) Independent Historian Clinical information obtained from an independent historian. History obtained from or confirmed by: EMS Tests considered The following testing was considered but not selected: Head CT was considered but patient with prior abscence seizures Chronic Conditions Patient?s care impacted by: Diabetes, Hypertension and Other (stroke) Discharge Plan Discharge Clinical Impression: Seizure, Acute UTI (urinary tract infection) Patient Disposition: Home, Self-Care Instructions: Urinary Tract Infection in Older Adults (ED), Epilepsy in Older Adults (ED) Prescriptions: New levofloxacin 500 mg tablet 500 mg PO DAILY 7 Days Qty: 7 0RF No Action insulin aspart U-100 100 unit/mL (3 mL) insulin pen 5 unit subcut .COMPLEX Qty: 15 8RF Rx Instructions: 5 units subcut q 6 hours; alcohol swabs Pads, Medicated 1 pad topical QID Qty: 200 8RF omeprazole 40 mg capsule,delayed release(DR/EC) 40 mg PO DAILY Qty: 90 8RF clopidogrel [Plavix] 75 mg tablet 75 mg PO DAILY Qty: 30 0RF hydralazine 25 mg tablet 25 mg PO DAILY Qty: 90 0RF (DME) adult pull ups Medium See Rx Instructions .Route .MEDSUPPLY Qty: 120 0RF Rx Instructions: As directed (DME) FreeStyle Lite Strips Strip See Rx Instructions .ROUTE .COMPLEX Qty: 100 0RF Dose Instruction: USE TO CHECK TWICE DAILY Rx Instructions: USE TO CHECK TWICE DAILY ascorbic acid (vitamin C) 500 mg tablet 500 mg PO DAILY Qty: 90 8RF (DME) pen needle, diabetic 31 gauge x 3/16 needle See Rx Instructions .ROUTE .MEDSUPPLY Qty: 50 8RF Rx Instructions: As directed aspirin 81 mg tablet,chewable 1 tab PO DAILY Qty: 90 8RF multivitamin with folic acid [Tab-A-Bob] 400 mcg tablet 1 tab PO DAILY Qty: 90 8RF (DME) chux pads See Rx Instructions .Route .MEDSUPPLY Qty: 2 11RF Rx Instructions: As directed (DME) hospital bed Kit See Rx Instructions .Route Qty: 1 0RF Rx Instructions: As directed docusate sodium 100 mg capsule 100 mg PO BID Qty: 60 5RF polyethylene glycol 3350 [Miralax] 17 gram powder in packet 17 g PO DAILY Qty: 100 3RF (DME) Slide Board Misc See Rx Instructions .Route Qty: 1 0RF Rx Instructions: As directed hydrocortisone [Anusol-HC] 2.5 % cream with perineal applicator 1 appl [place] BID-QID PRN (Reason: hemorrhoids) Qty: 30 3RF ciprofloxacin HCl [Cipro] 250 mg tablet 250 mg PO BID Qty: 10 0RF (DME) adult briefs large See Rx Instructions .Route .MEDSUPPLY Qty: 2 11RF Rx Instructions: As directed lidocaine 5 % adhesive patch,medicated 1 patch topical DAILY Qty: 30 3RF Rx Instructions: leave on most painful area for up to 12 hrs lisinopril 10 mg tablet 10 mg PO DAILY Qty: 30 8RF insulin detemir U-100 100 unit/mL (3 mL) insulin pen 70 unit subcut DAILY Qty: 15 7RF clotrimazole-betamethasone 1-0.05 % cream 1 appl topical BID 14 Days Qty: 45 0RF furosemide 20 mg tablet 20 mg PO DAILY Qty: 90 8RF (DME) Transfer Bench Misc See Rx Instructions .Route Qty: 1 0RF Rx Instructions: As directed (DME) Slide Board Misc See Rx Instructions .Route Qty: 1 0RF Rx Instructions: As directed (DME) shower bench See Rx Instructions .Route .MEDSUPPLY Qty: 1 0RF Rx Instructions: As directed (DME) Grab bar Misc See Rx Instructions .Route Qty: 1 0RF Rx Instructions: As directed Brilinta 90 mg tablet 90 mg PO BID Qty: 60 3RF ondansetron HCl 4 mg tablet 4 mg PO Q6H PRN (Reason: nausea and vomiting) Qty: 30 2RF albuterol sulfate [Ventolin HFA] 90 mcg/actuation HFA aerosol inhaler 2 puff inhalation Q4-6H PRN (Reason: shortness of breath or wheezing) 30 Days Qty: 8.5 0RF pregabalin 150 mg capsule 150 mg PO BID Qty: 60 0RF oxycodone-acetaminophen 5-325 mg tablet 1 tab PO Q8H PRN (Reason: pain) 28 Days Qty: 84 0RF Rx Instructions: #84 for 28 days. PARTIAL FILL UPON PATIENT REQUEST -- covering for Dr. Mena - ONE-TIME Rx only doxycycline hyclate 100 mg capsule 100 mg PO BID 7 Days Qty: 14 0RF oxycodone 5 mg capsule 5 mg PO TID PRN (Reason: pain) 3 Days Qty: 9 0RF Rx Instructions: Partial Fill upon patient request. (DME) blood-glucose meter Kit See Rx Instructions .ROUTE QID Qty: 1 Rx Instructions: As directed metoprolol tartrate 25 mg tablet 25 mg PO DAILY amlodipine 5 mg tablet 5 mg PO DAILY (DME) blood pressure monitor [Blood Pressure Kit] Kit See Rx Instructions .Route Qty: 1 0RF Rx Instructions: As directed tamsulosin 0.4 mg capsule 0.4 mg PO DAILY silver sulfadiazine 1 % cream topical DAILY hydrochlorothiazide 25 mg tablet 25 mg PO DAILY (DME) Wheel chair Kit See Rx Instructions .Route Qty: 1 0RF Rx Instructions: As directed Referrals: Physician,Unknown J [Primary Care Provider] - 3 days
[2023-08-25 15:42] VITALS: BP 80/40; BP 96/39; PULSE 78; PULSE 82; RESP 15; TEMP 37; O2SAT 96; O2SAT 98; BMI 24.0
[2023-08-25 15:50] LABS: Glucose, Whole Blood 219 mg/dL (60-115)
[2023-08-25 16:04] LABS: MANUAL DIFF FLAG NO
[2023-08-25 16:05] LABS: Basophils Absolute Auto 0.1 X10*3/uL (0.0-0.2); Basophils Percent Auto 0.7 % (0-2); Eosinophils Absolute Auto 0.8 X10*3/uL (0.0-0.4); Eosinophils Percent Auto 5.2 % (0-4); Hematocrit 37.8 % (42.0-52.0); Hemoglobin 12.4 g/dl (14.0-18.0); Imm Gran Abs Auto 0.13 X10*3/uL (0.00-0.03); Imm Gran Pct Auto 0.9 % (0.0-0.4); Lymphocytes Absolute Auto 2.2 X10*3/uL (1.2-4.9); Lymphocytes Percent Auto 14.9 % (20-40); Mean Corpuscular HGB Conc 32.8 g/dl (31.0-36.0); Mean Corpuscular Hemoglobin 30.2 pg (27.0-33.0); Mean Platelet Volume 11.8 fL (9.4-12.4); Monocytes Absolute Auto 0.9 X10*3/uL (0.1-1.2); Monocytes Percent Auto 6.3 % (2-11); Neutrophils Absolute Auto 10.5 x10*3/uL (2.0-8.3); Platelet Count 330 X10*3/uL (160-400); Red Blood Count 4.11 X10*6/uL (4.60-5.80); Red Cell Distribution Width 15.4 % (11.0-16.0); White Blood Count 14.5 X10*3/uL (4.8-10.8)
[2023-08-25] MEDS: 0.9 % Sodium Chloride 1,000 ML 500 ML IVCONT (16:18)
[2023-08-25 16:28] LABS: Alanine Aminotransferase 28 U/L (0-40); Albumin Level 3.4 g/dL (3.5-5.0); Alkaline Phosphatase 98 U/L (39-117); Anion Gap 16 (12-20); Aspartate Amino Transferase 26 U/L (5-37); Bilirubin Total 0.2 mg/dL (0.0-1.0); Blood Urea Nitrogen 34 mg/dL (9-16); Calcium 9.2 mg/dL (8.4-10.2); Carbon Dioxide 28 mmol/L (22-29); Chloride 102 mmol/L (96-108); Estimated Glomerular Filt Rate 58; Glucose Random 219 mg/dL (60-115); Potassium 4.3 mmol/L (3.3-5.1); Sodium 142 mmol/L (135-145); Total Protein 7.7 g/dL (6.5-8.0)
[2023-08-25 17:52] VITALS: BP 119/51; PULSE 76; RESP 12; O2SAT 99
--- NOTE | 2023-08-25 19:38 | PC.NURSE ---
Assumed care of the pt at 1900. Pt is asleep in bed at this time. Pt is on the monitor, VSS. Pt is pending dispo.
[2023-08-25 20:14] VITALS: BP 109/48; PULSE 74; RESP 10; O2SAT 98
[2023-08-25 20:26] LABS: Appearance Urine Clear; Color Urine Yellow; Glucose Urine UA 500 mg/dL (Negative); Leukocyte Esterase Urine Small (1+) (Negative); Nitrite Urine Negative (Negative); UMIC TRIGGER UACC YES; Urine Blood Trace (Negative); Urine Ketones Negative (Negative); Urine Protein Trace mg/dL (Neg-Trace)
[2023-08-25 20:28] LABS: Bacteria Urine 4+ (None Seen); Hyaline Casts Urine 0-2 /LPF (0-2); Squamous Epithelial Cell Urine 0-2 /HPF (0-2); UACC Culture Trigger YES
[2023-08-25] MEDS: oxyCODONE HCl Immed Release 5 MG TABLET PO (20:28)
--- NOTE | 2023-08-25 20:30 | PC.NURSE ---
Pt is awake and alert. Reporting nerve pain in his left arm and chest. Stated this is a pain that happens often. Pt was medicated per MAR. Urines sent to lab. Pt pending dispo at this time. Pt was given a sandwich, no trouble swallowing or signs of distress.
[2023-08-25] MEDS: levoFLOXacin 500 MG TABLET PO (20:56)
[2023-08-25 22:00] VITALS: BP 112/65; PULSE 75; RESP 16; TEMP 36.8; O2SAT 95
--- NOTE | 2023-08-25 22:41 | MHC.EDTECH ---
CHAIR VAN BOOKED FOR 10AM 08/26/23. PLEASE CALL SONY IF PT FINDS TRANSPORT BEFORE THEN
--- NOTE | 2023-08-25 22:45 | PC.NURSE ---
Pt requires Ambulance home due to being bedbound. EMS arrived to take pt home, but EMS refused to take his motorized wheelchair. Pt stated no one at home to bring chair home and he usually gets home via [facility]. Pt was brought to ED from outpatient across the street so wheelchair was driven over by itself. I told pt he could go with EMS and bring wheelchair home tomorrow, he can wait in the waiting room, or someone from home can get him. Pt is not agreeable to any plan, stating he will not leave without his wheelchair. He has his on the phone who is requesting to speak to oil field pipeline supervisor. Phone call has been given to Sophia CRUZ Bronzer who is explaining the options for pt and his .
--- NOTE | 2023-08-25 23:50 | PC.NURSE ---
EMS canvas goods supervisor came into ED and reported wheelchair is too heavy and it is a liability. Plan is, chairvan around 0500 will brass pickler wheelchair and an EMS crew will bring patient home. Pt is resting in bed. Needs met at this time.
[2023-08-28 18:23] LABS: Levetiracetam Keppra 78.3 mcg/mL (6.0-46.0)
--- NOTE | 2023-08-29 10:18 | MHC.CM.ED ---
Received notification that patient is active with [facility]. Referral sent in [facility].
== END 2023-08-26 06:11 | disposition home or self-care (01) ==
PROVIDERS: Emergency Provider Emergency Medicine
DX: R56.9 Unspecified convulsions (principal); N39.0 Urinary tract infection, site not specified; R41.82 Altered mental status, unspecified; Z79.899 Other long term (current) drug therapy
CPT/HCPCS: 36415; 71045; 80053; 80177; 81001; 82947; 85025; 87040; 87086; 87088; 87147; 87186; 87205; 96360; 96361; 99284; 99285

== ENCOUNTER 2023-08-31 14:03 | Outpatient (AMB) | payer MEDICARE, MEDICAID, SELFPAY ==
--- NOTE | 2023-08-31 14:16 | A.OFFPC_ITS ---
Vital Signs 08/31/23 14:18 BP 92/50 L Blood Pressure Location Rt brachial Position Sitting Pulse 84 Pulse Oximetry (%) 94 Intake Visit Reasons: [facility] 07/29 seizure/heart attack Allergies Penicillins Allergy (Intermediate, Verified 08/31/23 14:16) ITCHING/SWELLING Medication List - Last Reconciled 09/01/23 by Neri Mena MD [adult briefs As directed] [adult pull ups As directed] albuterol sulfate 90 mcg/actuation (Ventolin HFA) 2 puffs inhalation Q4-6H PRN 30 days alcohol swabs 1 pad topical QID amlodipine 5 mg PO DAILY ascorbic acid (vitamin C) 500 mg PO DAILY aspirin 1 tab PO DAILY blood pressure monitor (Blood Pressure Kit) As directed blood sugar diagnostic (FreeStyle Lite Strips) USE TO CHECK TWICE DAILY blood-glucose meter As directed chair, wheel (Wheel chair) As directed [chux pads As directed] ciprofloxacin HCl (Cipro) 250 mg PO BID clopidogrel (Plavix) 75 mg PO DAILY clotrimazole-betamethasone 1-0.05 % 1 appl topical BID 2 weeks docusate sodium 100 mg PO BID doxycycline hyclate 100 mg PO BID 7 days furosemide 20 mg PO DAILY Grab bar As directed hospital bed As directed hydralazine 25 mg PO DAILY hydrochlorothiazide 25 mg PO DAILY hydrocortisone 2.5% (Anusol-HC) 1 appl MS BID-QID PRN insulin aspart U-100 5 units subcut q 6 hours; insulin detemir U-100 70 units (0.7 mL) subcut DAILY levofloxacin 500 mg PO DAILY 7 days lidocaine 5% 1 patch topical DAILY lisinopril 10 mg PO DAILY metoprolol tartrate 25 mg PO DAILY multivitamin with folic acid 400 mcg (Tab-A-Bob) 1 tab PO DAILY nitrofurantoin macrocrystal 100 mg PO BID 7 days omeprazole 40 mg PO DAILY ondansetron HCl 4 mg PO Q6H PRN oxycodone 5 mg PO TID PRN 3 days oxycodone-acetaminophen 5-325 mg 1 tab PO Q8H PRN 28 days pen needle, diabetic As directed polyethylene glycol 3350 (Miralax) 17 grams PO DAILY pregabalin 150 mg PO BID [shower bench As directed] silver sulfadiazine 1% appl topical DAILY Slide Board As directed Slide Board As directed tamsulosin 0.4 mg PO DAILY ticagrelor (Brilinta) 90 mg PO BID Transfer Bench As directed Tobacco use date assessed: 08/31/23 Dental Screening Dental Screen Date: 08/31/23 Did you have a dental visit in the last 12 months?: No Did you have a dental problem in the last 6 months where you did not have access to dental care?: No Was dental information given to patient?: No HPI [facility] 07/29 seizure/heart attack HPI Details DM HTN and asthma on rx; doing well and compliant [facility] Medical History Knee pain, bilateral Back pain Obesity Diabetes mellitus with neuropathy Diabetes mellitus Constipation Hyperlipidemia Surgical History History of total right knee replacement (~2012) History of neck surgery History of hemorrhoidectomy History of surgery History of CVA (cerebrovascular accident) History of tympanoplasty Family History Father Medical history unknown Mother HIV (human immunodeficiency virus infection) Social History Housing: Apartment Alcohol intake: never Patient Tobacco Use Status: Never used Tobacco e-Cigarette/Vaping Use: Never Used Second Hand Smoke Exposure: No service: No Current occupational status: disabled Cognitive needs: Yes (Pt has a walker) Hearing needs: No Vision needs: Yes (Blurred vision) Questionnaire PHQ-9 Over the last 2 weeks, how often have you been bothered by any of the following problems? 1. Little interest or pleasure in doing things: not at all 2. Feeling down, depressed, or hopeless: not at all 3. Trouble falling or staying asleep, or sleeping too much: not at all 4. Feeling tired or having little energy: not at all 5. Poor appetite or overeating: not at all 6. Feeling bad about yourself - or that you are a failure or have let yourself or your family down: not at all 7. Trouble concentrating on things, such as reading the newspaper or watching television: not at all 8. Moving or speaking so slowly that other people could have noticed. Or the opposite - being so fidgety or restless that you have been moving around a lot more than usual: not at all 9. Thoughts that you would be better off or of hurting yourself in some way: not at all Total score: 0 Depression Screening Interpretation: Negative Depression Screening Done: Yes Source: Developed by Drs. Kyle Morin, Sarika Reardon, Hubert Nicholas and colleagues, with an educational luis from [employer]. Thrive Questionnaire Date Thrive assessed: 08/31/23 I am a: Parent/Caregiver What is your living situation today?: I have a steady place to live Within the past 12 months, did the food you bought not last and you didn't have the money to get more?: Never true Within the past 12 months, did you worry whether your food would run out before you got money to buy more?: Never true Do you have trouble paying for medicines?: No Do you have trouble getting transportation to medical appointments?: No Do you have trouble paying your heating and electricity bill?: No Do you have trouble taking care of your child, family member or friend?: No Do you have trouble with day-to-day activities such as bathing, preparing meals, shopping, managing finances, etc.?: No Are you currently unemployed and looking for a job?: No Are you interested in more education?: No Currently or been in a relationship where the following occur: no concerns reported THRIVE Score: 0 AUDIT C Alcohol Use Questionnaire (AUDIT-C) 1. How often do you have a drink containing alcohol?: Never 3. How often do you have six or more drinks on one occasion?: Never Total Score: 0 Score Reviewed/Action Taken: Yes KAILEE-7 AMB Questionnaire KAILEE-7 Date KAILEE - 7 assessed: 08/31/23 Feeling nervous, anxious, or on edge: 0 = Not at all Not being able to stop or control worryin = Not at all Worrying too much about different things: 0 = Not at all Trouble relaxin = Not at all Being so restless that it is hard to sit still: 0 = Not at all Becoming easily annoyed or irritable: 0 = Not at all Feeling afraid as if something awful might happen: 0 = Not at all Total KAILEE-7 score (0-4 normal; 5-9 mild; 10-14 moderate; 15-21 severe): 0 Source: Developed by Drs. Kyle Morin, Sarika Reardon, Hubert Nicholas and colleagues, with an educational luis from [employer]. Review of Systems Const Denies chills, Denies headache(s) and Denies weight loss ENT Denies headache(s) Card Denies chest pain, Denies syncope, Denies irregular heart rhythm and Denies dyspnea Resp Denies chest congestion, Denies cough and Denies dyspnea GI Denies abdominal pain, Denies change in stool character, Denies nausea and Denies vomiting Musc Denies deformity and Denies joint swelling Neuro Denies syncope and Denies headache(s) Physical exam (Primary Care) Vital Signs: Last Vital Signs Pulse 84 08/31/23 14:18 BP 92/50 L 08/31/23 14:18 Pulse Ox 94 08/31/23 14:18 Tobacco/Smoking Status: Tobacco use Status Tobacco use date assessed 08/31/23 08/31/23 14:22 Patient Tobacco Use Status Never used Tobacco 08/31/23 14:22 e-Cigarette/Vaping Use Never Used 08/31/23 14:22 PHQ-9: PHQ-9 Score PHQ-9: Total score 0 08/31/23 14:22 Depression Screening Interpretation: Negative Thrive Assessment: Date of Thrive Assessment Date Thrive assessed 08/31/23 08/31/23 14:22 Currently or been in a relationship where the following occur: no concerns reported Const General: cooperative, comfortable, no acute distress and alert Neck Neck: Yes no lymphadenopathy Thyroid: Thyroid normal Resp Effort & Inspection: normal respiratory effort Auscultation: clear to auscultation bilaterally Percussion: percussion normal Cardio Jugular venous distension: no JVD Palpation: normal PMI Rate: regular rate Rhythm: regular rhythm Heart sounds: S1 normal heart sound present and S2 normal heart sound present GI Inspection: Yes normal to inspection Palpation (GI): No hepatosplenomegaly present Skin General skin exam: no rashes or lesions noted Extrem General: Yes no clubbing, cyanosis or edema Assessment and Plan Assessment & Plan (1) Hypertension: Code(s): I10 - Essential (primary) hypertension Plan: stable; same rx (2) Diabetes mellitus with neuropathy: Code(s): E11.40 - Type 2 diabetes mellitus with diabetic neuropathy, unspecified Plan: stable; same rx (3) Asthma: Code(s): J45.909 - Unspecified asthma, uncomplicated Plan: stable; same rx Orders: Orders Lipid Panel 08/31/23 E78.5 - Hyperlipidemia, unspecified Complete Blood Count Auto Diff 08/31/23 D64.9 - Anemia, unspecified Comprehensive [place]. Panel Fast 08/31/23 N28.9 - Disorder of kidney and ureter, unspecified Thyroid Stimulating Hormone 08/31/23 E03.9 - Hypothyroidism, unspecified Levetiracetam Keppra 08/31/23 R56.9 - Unspecified convulsions Coding Level of Care Code Est Pt Level 4 (57605) Diagnoses Hypertension I10 Diabetes mellitus with neuropathy E11.40 Asthma J45.909
[2023-08-31 14:18] VITALS: BP 92/50; PULSE 84; O2SAT 94
== END 2023-08-31 14:47 | disposition home or self-care (01) ==
PROVIDERS: PCP Internal Medicine; Visit Provider Internal Medicine
DX: I10 Essential (primary) hypertension (principal); E11.40 Type 2 diabetes mellitus with diabetic neuropathy, unspecified; J45.909 Unspecified asthma, uncomplicated
CPT/HCPCS: 99214

== ENCOUNTER 2023-09-01 10:36 | Emergency (ER) | payer MEDICARE, MEDICAID, SELFPAY ==
--- NOTE | 2023-09-01 10:39 | ED_ITS ---
HPI - General Adult General Chief complaint: Recheck/Abnormal Lab/Rx Stated complaint: ABN LABS FROM DR OFFICE PER EMS Time Seen by Provider: 09/01/23 10:38 Source: patient, family (patient's ) and EMS Mode of arrival: EMS Limitations: no limitations History of Present Illness HPI narrative: Patient is a 62 year old assigned male at with a history of chronic hood use presenting to the emergency department today after being informed of ESBL in his urine. Patient states that he was called this morning and told that he had a special kind of infection in his urine and should come back to the ER. Patient states that he is having penile and lower abdominal pain. Patient denies any dizziness, lightheadedness, nausea, vomiting, fever, chills, blurry vision, double vision, loss of vision, chest pain, difficulty breathing, shortness of breath, back pain, night sweats, blood in his urine or stool, syncope or a near syncopal episode, recent trauma or falls, bowel incontinence, bladder incontinence, bowel retention, bladder retention, or any other complaints at this time. 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 Relieving factors: none Exacerbating factors: none Associated symptoms: denies other symptoms Treatments prior to arrival: none Related Data Home Medications Medication Instructions Recorded Confirmed blood-glucose meter #1 ea 06/11/20 09/01/23 amlodipine 5 mg tablet 5 mg PO DAILY 10/01/21 09/01/23 metoprolol tartrate 25 mg tablet 25 mg PO DAILY 10/01/21 09/01/23 tamsulosin 0.4 mg capsule 0.4 mg PO DAILY 12/17/21 09/01/23 silver sulfadiazine 1 % topical appl topical DAILY 06/10/22 09/01/23 cream hydrochlorothiazide 25 mg tablet 25 mg PO DAILY 09/10/22 09/01/23 Previous Rx's Medication Instructions Recorded insulin aspart U-100 100 unit/mL 5 unit (0.05 mL) subcut .COMPLEX 08/25/20 (3 mL) subcutaneous pen #15 mL blood pressure monitor (Blood #1 ea 10/01/21 Pressure Kit) alcohol swabs 1 pad topical QID diabetes 08/02/22 mellitus #200 ea omeprazole 40 mg capsule,delayed 40 mg PO DAILY #90 caps 08/31/22 release chair, wheel (Wheel chair) #1 ea 09/10/22 clopidogrel 75 mg tablet (Plavix) 75 mg PO DAILY #30 tabs 09/13/22 hydralazine 25 mg tablet 25 mg PO DAILY #90 tabs 10/11/22 adult pull ups #120 ea 10/27/22 blood sugar diagnostic (FreeStyle #100 strips 10/29/22 Lite Strips) ascorbic acid (vitamin C) 500 mg 500 mg PO DAILY #90 tabs 11/22/22 tablet aspirin 81 mg chewable tablet 1 tab PO DAILY #90 tabs 11/22/22 multivitamin with folic acid 400 1 tab PO DAILY #90 tabs 11/22/22 mcg tablet (Tab-A-Bob) pen needle, diabetic 31 gauge x #50 ea 11/22/2209/16 chux pads #2 ea 12/17/22 hospital bed #1 ea 12/21/22 doxycycline hyclate 100 mg capsule 100 mg PO BID 7 days #14 caps 12/24/22 oxycodone 5 mg capsule 5 mg PO TID PRN pain 3 days #9 caps 12/24/22 docusate sodium 100 mg capsule 100 mg PO BID #60 caps 01/18/23 polyethylene glycol 3350 17 gram 17 g PO DAILY #100 ea 01/18/23 oral powder packet (Miralax) Slide Board #1 ea 02/10/23 hydrocortisone 2.5 % topical cream 1 appl IN BID-QID PRN hemorrhoids 02/15/23 with perineal applicator #30 grams (Anusol-HC) ciprofloxacin HCl 250 mg tablet 250 mg PO BID #10 tabs 02/18/23 (Cipro) adult briefs #2 ea 03/08/23 lidocaine 5 % topical patch 1 patch topical DAILY #30 ea 03/20/23 lisinopril 10 mg tablet 10 mg PO DAILY #30 tabs 03/21/23 insulin detemir U-100 100 unit/mL 70 unit (0.7 mL) subcut DAILY #15 03/30/23 (3 mL) subcutaneous pen mL clotrimazole-betamethasone 1 1 appl topical BID 2 weeks #45 03/31/23 %-0.05 % topical cream grams furosemide 20 mg tablet 20 mg PO DAILY #90 tabs 04/26/23 Grab bar #1 ea 05/03/23 Slide Board #1 ea 05/03/23 Transfer Bench #1 ea 05/03/23 shower bench #1 ea 05/03/23 ticagrelor 90 mg tablet (Brilinta) 90 mg PO BID #60 tabs 05/11/23 ondansetron HCl 4 mg tablet 4 mg PO Q6H PRN nausea and 05/13/23 vomiting #30 tabs albuterol sulfate 90 mcg/actuation 2 puff inhalation Q4-6H PRN 07/27/23 aerosol inhaler (Ventolin HFA) shortness of breath or wheezing 30 days #8.5 grams pregabalin 150 mg capsule 150 mg PO BID #60 caps 08/01/23 oxycodone-acetaminophen 5 mg-325 1 tab PO Q8H PRN pain 28 days #84 08/05/23 mg tablet tabs levofloxacin 500 mg tablet 500 mg PO DAILY 7 days #7 tabs 08/25/23 nitrofurantoin macrocrystal 100 mg 100 mg PO BID 7 days #14 caps 08/30/23 capsule fosfomycin tromethamine 3 gram 1 packet PO Q3D 2 doses #1 ea 09/01/23 oral packet Allergies Allergy/AdvReac Type Severity Reaction Status Date / Time Penicillins Allergy Intermediate ITCHING/SWE Verified 08/31/23 14:16 LLING Review of Systems 2 Constitutional: Constitutional: Reports no additional constitutional complaints, Denies chills, Denies fever(s) and Denies night sweats Eyes: Eyes: Reports no additional eye complaints, Denies blurry vision, Denies change in vision, Denies diplopia, Denies eye discharge, Denies loss of vision and Denies eye pain ENT: Denies dizziness Cardiovascular: Cardiovascular: Reports no additional cardiovascular complaints, Denies chest pain, Denies lightheadedness, Denies Loss of Consciousness and Denies dyspnea Respiratory: Respiratory: Reports no additional respiratory complaints and Denies dyspnea Gastrointestinal: Gastrointestinal: Reports no additional gastrointestinal complaints, Reports abdominal pain, Denies melena, Denies hematochezia, Denies change in bowel habits and Denies change in stool character Genitourinary: Genitourinary: Reports no additional male genitourinary complaints and Reports dysuria Comments: chronic hood catheter Musculoskeletal: Musculoskeletal: Reports no additional musculoskeletal complaints Comments: chronic decrease use of bilateral lower extremities Neurologic: Denies dizziness and Denies loss of vision Psychiatric: Psychiatric: Reports no additional psychiatric complaints Endocrine: Endocrine: Reports no additional endocrine complaints Hematologic/Lymphatic: Hematologic/Lymphatic: Reports no additional hematologic/lymphatic complaints Allergic/Immunologic: Allergic/Immunologic: Reports no additional allergic/immunologic complaints [facility] Past Medical History Attestation statement: The following information was validated with the patient. (all information validated with the patient's ) Source: old records reviewed, obtained from family (patient's provided additional history and confirmed the history provided by the patient.) and nursing notes reviewed Medical History Knee pain, bilateral Back pain Obesity Diabetes mellitus with neuropathy Diabetes mellitus Constipation Hyperlipidemia Surgical History History of total right knee replacement (~2012) History of neck surgery History of hemorrhoidectomy History of surgery History of CVA (cerebrovascular accident) History of tympanoplasty Family History Family History Father Medical history unknown Mother HIV (human immunodeficiency virus infection) Social History Social History Housing: Apartment Alcohol intake: never Patient Tobacco Use Status: Never used Tobacco e-Cigarette/Vaping Use: Never Used Second Hand Smoke Exposure: No Advance Directives: No Advance Directives Information Provided: Yes service: No Current occupational status: disabled Cognitive needs: Yes (Pt has a walker) Hearing needs: No Vision needs: Yes (Blurred vision) Physical Exam ED Vital Signs: Vital Signs - 24 hr 09/01/23 11:00 Temperature 97.9 F Pulse Rate 67 Respiratory Rate 16 Blood Pressure 106/57 L Pulse Oximetry 96 Oxygen Delivery Method Room Air BMI result Body Mass Index 31.9 Const General: cooperative, no acute distress, alert and awake Nutritional Appearance: well nourished Orientation/consciousness: patient oriented x3 Limitations: no limitations HENMT Head: Yes normal to inspection and Yes atraumatic Ears: hearing grossly normal bilaterally and external ears normal General nose exam: Normal external nose present, no nasal discharge noted and no epistaxis Face and sinus: Yes normal facial exam, No abrasion and No laceration Mouth: Normal oral and palatal mucosa present, no drooling and no muffled voice Eyes General: appearance normal, both eyes and all related structures Periorbital: periorbital findings normal Eyelids: Yes eyelids normal Conjunctivae: conjunctivae normal Pupils: Equal, round and reactive pupils present EOM: EOMs intact bilaterally Neck Neck: Yes normal visual inspection, Yes full ROM and Yes no lymphadenopathy Chest Chest palpation & inspection: normal inspection of the chest Resp Effort & Inspection: normal respiratory effort and able to speak in complete sentences GI Inspection: Yes normal to inspection Other: hood catheter in place Neuro Other: patient has chronic decreased use of his bilateral lower extremities General: patient oriented x3 Cranial nerves: Yes Equal, round and reactive pupils present Cognition (Neuro): normal cognition Extrem Other: patient has chronic decreased use of his bilateral lower extremities General: Yes normal to inspection and Yes capillary refill normal Psych Appearance: grossly normal Mental Status: mental status grossly normal Affect: normal affect Attitude: cooperative Thought process: Normal thought process present Thought content: Normal thought content present Insight: Good insight present (Psych) Medical Decision Making Medical Decision Making MDM Narrative: Patient is a 62 year old assigned male at with a history of chronic hood presenting to the emergency department today with lower abdominal pain, pain with urination, and ESBL. Patient's physical exam was as noted in the physical exam portion of this note. Patient's blood work was unremarkable. I consulted with ID who recommended giving the patient 3g of PO Fosfomycin and repeating that dose in 3 days. I explained my physical exam findings as well as all test results to the patient and the patient's . I answered all questions asked by the patient and the patient's . I stressed the importance of the patient taking his medication as prescribed. I stressed the importance of the patient following up with his primary care provider and ID. I stressed the importance of the patient returning to the emergency department immediately if his symptoms were to worsen or if he were to develop any dizziness, shortness of breath, difficulty breathing, chest pain, blurry vision, loss of vision, nausea, vomiting, abdominal pain, fever, chills, back pain, or any other complaints. Patient and the patient's verbalized agreement and understanding with this treatment plan and discharge. Differential Diagnosis Differential Diagnoses: The differential diagnosis associated with the presentation includes UTI ESBL Abdominal pain Admission/Observation Consideration of admission/observation: Escalation of care including admission/observation considered Patient would have been admitted to the hospital had his work up had any findings where hospital admission was appropriate and his clinical presentation warranted hospital admission. Consult Healthcare Provider Management of the patient was discussed with: Statistical Geneticist (spoke with ID as noted in the MDM rationale portion of this note.) Lab Data [facility] Lab Attestation statement: I reviewed the patient's lab results. My interpretation of these results are in the MDM Rationale portion of this note. 09/01/23 11:38 09/01/23 11:38 Labs: Lab Results 09/01/23 09/01/23 Range/Units 11:26 11:38 WBC 12.4 H (4.8-10.8) X10*3/uL RBC 4.00 L (4.60-5.80) X10*6/uL Hgb 12.1 L (14.0-18.0) g/dl Hct 35.8 L (42.0-52.0) % MCV 89.5 (80.0-98.0) fL MCH 30.3 (27.0-33.0) pg MCHC 33.8 (31.0-36.0) g/dl RDW 15.0 (11.0-16.0) % Plt Count 329 (160-400) X10*3/uL MPV 10.8 (9.4-12.4) fL Immature Gran % (Auto) 0.4 (0.0-0.4) % Neut % (Auto) 56.9 (45-73) % Lymph % (Auto) 30.9 (20-40) % Mcdonough % (Auto) 5.7 (2-11) % Eos % (Auto) 5.3 H (0-4) % Baso % (Auto) 0.8 (0-2) % Lymph # (Auto) 3.8 (1.2-4.9) X10*3/uL [place] # (Auto) 0.7 (0.1-1.2) X10*3/uL Eos # (Auto) 0.7 H (0.0-0.4) X10*3/uL Baso # (Auto) 0.1 (0.0-0.2) X10*3/uL Abs Immat Gran (auto) 0.05 H (0.00-0.03) X10*3/uL Absolute Neuts (auto) 7.0 (2.0-8.3) x10*3/uL Absolute Nucleated RBC 0.000 (0.0-0.012) X10*3/uL Nucleated RBC % (auto) 0.0 (0.0-0.2) /100WBC Sodium 141 (135-145) mmol/L Potassium 4.2 (3.3-5.1) mmol/L Chloride 106 (96-108) mmol/L Carbon Dioxide 26 (22-29) mmol/L Anion Gap 13 (12-20) BUN 31 H (9-16) mg/dL Creatinine 1.20 (0.5-1.4) mg/dL Estim Creat Clear Calc 58.8 Estimated GFR > 60 Random Glucose 135 H (60-115) mg/dL Lactic Acid 1.3 (0.5-2.0) mmol/L Calcium 8.9 (8.4-10.2) mg/dL Magnesium 2.0 (1.6-2.6) mg/dL Total Bilirubin 0.2 (0.0-1.0) mg/dL AST 25 (5-37) U/L ALT 19 (0-40) U/L Alkaline Phosphatase 87 (39-117) U/L Total Protein 7.4 (6.5-8.0) g/dL Albumin 3.2 L (3.5-5.0) g/dL Urine Color Yellow Urine Appearance Clear Urine pH 6.5 (5.0-9.0) Ur Specific [place] <= 1.005 (1.005-1.025) Urine Protein 30 (1+) H (Neg-Trace) mg/dL Urine Glucose (UA) Negative (Negative) mg/dL Urine Ketones Negative (Negative) mg/dL Urine Blood Trace H (Negative) Urine Nitrite Negative (Negative) Ur Leukocyte Esterase Small (1+) H (Negative) Urine RBC 3-5 H (0-2) /HPF Urine WBC 0-5 (0-5) /HPF Ur Squamous Epith Cells 0-2 (0-2) /HPF Urine Bacteria 1+ (None Seen) Hyaline Casts 0-2 (0-2) /LPF Independent Historian Clinical information obtained from an independent historian. History obtained from or confirmed by: Spouse (patient's provided additional history and confirmed the history provided by the patient.) and EMS (EMS provided additional history and confirmed the history provided by the patient.) Critical Care Time Critical Care Time Critical Care Time: Yes Total Critical Care Time: 45 Attestation: I spent 45 minutes of Critical Care Time with this patient. This does not include time spent on separately reported billable procedures. Discharge Plan Discharge Clinical Impression: Acute UTI Patient Disposition: Home, Self-Care Instructions: Catheter-associated Urinary Tract Infection (ED) Additional Instructions: Follow up with your primary care provider. Return to the emergency department immediately if your symptoms worsen or if you develop any dizziness, shortness of breath, difficulty breathing, chest pain, blurry vision, loss of vision, nausea, vomiting, abdominal pain, fever, chills, back pain, or any other complaints. Prescriptions: New fosfomycin tromethamine 3 gram packet 1 packet PO Q3D Qty: 1 0RF No Action insulin aspart U-100 100 unit/mL (3 mL) insulin pen 5 unit subcut .COMPLEX Qty: 15 8RF Rx Instructions: 5 units subcut q 6 hours; alcohol swabs Pads, Medicated 1 pad topical QID Qty: 200 8RF omeprazole 40 mg capsule,delayed release(DR/EC) 40 mg PO DAILY Qty: 90 8RF clopidogrel [Plavix] 75 mg tablet 75 mg PO DAILY Qty: 30 0RF hydralazine 25 mg tablet 25 mg PO DAILY Qty: 90 0RF (DME) adult pull ups Medium See Rx Instructions .Route .MEDSUPPLY Qty: 120 0RF Rx Instructions: As directed (DME) FreeStyle Lite Strips Strip See Rx Instructions .ROUTE .COMPLEX Qty: 100 0RF Dose Instruction: USE TO CHECK TWICE DAILY Rx Instructions: USE TO CHECK TWICE DAILY ascorbic acid (vitamin C) 500 mg tablet 500 mg PO DAILY Qty: 90 8RF (DME) pen needle, diabetic 31 gauge x 3/16 needle See Rx Instructions .ROUTE .MEDSUPPLY Qty: 50 8RF Rx Instructions: As directed aspirin 81 mg tablet,chewable 1 tab PO DAILY Qty: 90 8RF multivitamin with folic acid [Tab-A-Bob] 400 mcg tablet 1 tab PO DAILY Qty: 90 8RF (DME) chux pads See Rx Instructions .Route .MEDSUPPLY Qty: 2 11RF Rx Instructions: As directed (DME) hospital bed Kit See Rx Instructions .Route Qty: 1 0RF Rx Instructions: As directed docusate sodium 100 mg capsule 100 mg PO BID Qty: 60 5RF polyethylene glycol 3350 [Miralax] 17 gram powder in packet 17 g PO DAILY Qty: 100 3RF (DME) Slide Board Misc See Rx Instructions .Route Qty: 1 0RF Rx Instructions: As directed hydrocortisone [Anusol-HC] 2.5 % cream with perineal applicator 1 appl IN BID-QID PRN (Reason: hemorrhoids) Qty: 30 3RF ciprofloxacin HCl [Cipro] 250 mg tablet 250 mg PO BID Qty: 10 0RF (DME) adult briefs large See Rx Instructions .Route .MEDSUPPLY Qty: 2 11RF Rx Instructions: As directed lidocaine 5 % adhesive patch,medicated 1 patch topical DAILY Qty: 30 3RF Rx Instructions: leave on most painful area for up to 12 hrs lisinopril 10 mg tablet 10 mg PO DAILY Qty: 30 8RF insulin detemir U-100 100 unit/mL (3 mL) insulin pen 70 unit subcut DAILY Qty: 15 7RF clotrimazole-betamethasone 1-0.05 % cream 1 appl topical BID 14 Days Qty: 45 0RF furosemide 20 mg tablet 20 mg PO DAILY Qty: 90 8RF (DME) Transfer Bench Misc See Rx Instructions .Route Qty: 1 0RF Rx Instructions: As directed (DME) Slide Board Misc See Rx Instructions .Route Qty: 1 0RF Rx Instructions: As directed (DME) shower bench See Rx Instructions .Route .MEDSUPPLY Qty: 1 0RF Rx Instructions: As directed (DME) Grab bar Mis See Rx Instructions .Route Qty: 1 0RF Rx Instructions: As directed Brilinta 90 mg tablet 90 mg PO BID Qty: 60 3RF ondansetron HCl 4 mg tablet 4 mg PO Q6H PRN (Reason: nausea and vomiting) Qty: 30 2RF albuterol sulfate [Ventolin HFA] 90 mcg/actuation HFA aerosol inhaler 2 puff inhalation Q4-6H PRN (Reason: shortness of breath or wheezing) 30 Days Qty: 8.5 0RF pregabalin 150 mg capsule 150 mg PO BID Qty: 60 0RF oxycodone-acetaminophen 5-325 mg tablet 1 tab PO Q8H PRN (Reason: pain) 28 Days Qty: 84 0RF Rx Instructions: #84 for 28 days. PARTIAL FILL UPON PATIENT REQUEST -- covering for Dr. Mena - ONE-TIME Rx only doxycycline hyclate 100 mg capsule 100 mg PO BID 7 Days Qty: 14 0RF oxycodone 5 mg capsule 5 mg PO TID PRN (Reason: pain) 3 Days Qty: 9 0RF Rx Instructions: Partial Fill upon patient request. levofloxacin 500 mg tablet 500 mg PO DAILY 7 Days Qty: 7 0RF nitrofurantoin macrocrystal 100 mg capsule 100 mg PO BID 7 Days Qty: 14 0RF Rx Instructions: must administer with a meal/food (DME) blood-glucose meter Kit See Rx Instructions .ROUTE QID Qty: 1 Rx Instructions: As directed metoprolol tartrate 25 mg tablet 25 mg PO DAILY amlodipine 5 mg tablet 5 mg PO DAILY (DME) blood pressure monitor [Blood Pressure Kit] Kit See Rx Instructions .Route Qty: 1 0RF Rx Instructions: As directed tamsulosin 0.4 mg capsule 0.4 mg PO DAILY silver sulfadiazine 1 % cream topical DAILY hydrochlorothiazide 25 mg tablet 25 mg PO DAILY (DME) Wheel chair Kit See Rx Instructions .Route Qty: 1 0RF Rx Instructions: As directed Referrals: [facility] [place] Infectious Disease [Provider Group] (Call to establish and follow up with an infectious disease doctor. ) [facility] [place] Family Medicine [Provider Group] (Call to establish and follow up with a primary care provider. If you already have a primary care provider, please follow up with them.) [facility] [place] Primary Care, [facility] [Provider Group] (Call to establish and follow up with a primary care provider. If you already have a primary care provider, please follow up with them.) [facility] [place] Primary Care,Lucy [Provider Group] (Call to establish and follow up with a primary care provider. If you already have a primary care provider, please follow up with them.) Print Language: Hungarian
[2023-09-01 11:00] VITALS: BP 106/57; PULSE 67; RESP 16; TEMP 36.6; O2SAT 96; BMI 31.9
[2023-09-01 11:41] LABS: Appearance Urine Clear; Color Urine Yellow; Glucose Urine UA Negative (Negative); Leukocyte Esterase Urine Small (1+) (Negative); Nitrite Urine Negative (Negative); PH 6.5 (5.0-9.0); Specific Gravity - Urine <= 1.005 (1.005-1.025); UMIC TRIGGER UACC YES; Urine Blood Trace (Negative); Urine Ketones Negative (Negative); Urine Protein 30 (1+) mg/dL (Neg-Trace)
[2023-09-01 11:44] LABS: MANUAL DIFF FLAG NO
[2023-09-01 11:50] LABS: Bacteria Urine 1+ (None Seen); Hyaline Casts Urine 0-2 /LPF (0-2); Squamous Epithelial Cell Urine 0-2 /HPF (0-2); UACC Culture Trigger YES; WBC Urine 0-5 /HPF (0-5)
[2023-09-01 11:54] LABS: Basophils Absolute Auto 0.1 X10*3/uL (0.0-0.2); Basophils Percent Auto 0.8 % (0-2); Eosinophils Absolute Auto 0.7 X10*3/uL (0.0-0.4); Eosinophils Percent Auto 5.3 % (0-4); Hematocrit 35.8 % (42.0-52.0); Hemoglobin 12.1 g/dl (14.0-18.0); Imm Gran Abs Auto 0.05 X10*3/uL (0.00-0.03); Imm Gran Pct Auto 0.4 % (0.0-0.4); Lymphocytes Absolute Auto 3.8 X10*3/uL (1.2-4.9); Lymphocytes Percent Auto 30.9 % (20-40); Mean Corpuscular HGB Conc 33.8 g/dl (31.0-36.0); Mean Corpuscular Hemoglobin 30.3 pg (27.0-33.0); Mean Corpuscular Volume 89.5 fL (80.0-98.0); Mean Platelet Volume 10.8 fL (9.4-12.4); Monocytes Absolute Auto 0.7 X10*3/uL (0.1-1.2); Monocytes Percent Auto 5.7 % (2-11); Neutrophils Percent Auto 56.9 % (45-73); Platelet Count 329 X10*3/uL (160-400); White Blood Count 12.4 X10*3/uL (4.8-10.8)
[2023-09-01 11:56] LABS: Lactic Acid 1.3 mmol/L (0.5-2.0)
[2023-09-01 12:02] LABS: Alanine Aminotransferase 19 U/L (0-40); Albumin Level 3.2 g/dL (3.5-5.0); Alkaline Phosphatase 87 U/L (39-117); Anion Gap 13 (12-20); Aspartate Amino Transferase 25 U/L (5-37); Bilirubin Total 0.2 mg/dL (0.0-1.0); Blood Urea Nitrogen 31 mg/dL (9-16); Calcium 8.9 mg/dL (8.4-10.2); Carbon Dioxide 26 mmol/L (22-29); Chloride 106 mmol/L (96-108); Creatinine Clr Calc Pharmacy 58.8; Estimated Glomerular Filt Rate > 60; Glucose Random 135 mg/dL (60-115); Potassium 4.2 mmol/L (3.3-5.1); Sodium 141 mmol/L (135-145); Total Protein 7.4 g/dL (6.5-8.0)
[2023-09-01 17:46] VITALS: BP 116/74; PULSE 86; RESP 16; O2SAT 97
--- NOTE | 2023-09-02 09:36 | MHC.CM.ED ---
Received notification from [facility] that patient is active with their agency. Return referral made via [facility].
== END 2023-09-01 17:50 | disposition home or self-care (01) ==
PROVIDERS: Physician Assistant Medical; Emergency Provider Emergency Medicine; PCP Internal Medicine
DX: N39.0 Urinary tract infection, site not specified (principal); B96.89 Other specified bacterial agents as the cause of diseases classified elsewhere; E11.9 Type 2 diabetes mellitus without complications
CPT/HCPCS: 36415; 80053; 81001; 83605; 83735; 85025; 87040; 87086; 99283; 99284

== ENCOUNTER 2023-09-26 13:11 | Outpatient (AMB) | payer MEDICARE, MEDICAID, SELFPAY ==
[2023-09-26 13:18] VITALS: PULSE 75; TEMP 36.4; O2SAT 99
--- NOTE | 2023-09-26 13:18 | MHC.OFFVIS ---
Intake Vital Signs 09/26/23 13:18 Pulse 75 Pulse Source Pulse Oximeter Temp 97.6 F Temp Source Oral Pulse Oximetry (%) 99 Intake Visit Reasons: Catheter-associated Urinary Tract Infection Allergies Penicillins Allergy (Intermediate, Verified 09/26/23 13:19) ITCHING/SWELLING HPI Catheter-associated Urinary Tract Infection HPI Details He has ESBL bacteria in urine. He has chronic Still catheter use. He was told to come back to ER for this on . I reviewed his results and he had Klebsiella pneumonia ESBL and enterococcus faecalis 10 to 50,000 on 08/25/2023. He left ER with script for 3 g fosfomycin. He said he has Still catheter for less than a year. He is here with his niece. H said he feels well. [facility] Medical History (Updated 10/02/23 @ 17:12 by Carlita Templeton MD) Bacteriuria, chronic Knee pain, bilateral Back pain Obesity Diabetes mellitus with neuropathy Diabetes mellitus Constipation Hyperlipidemia Surgical History History of total right knee replacement (~2012) History of neck surgery History of hemorrhoidectomy History of surgery History of CVA (cerebrovascular accident) History of tympanoplasty Family History Father Medical history unknown Mother HIV (human immunodeficiency virus infection) Social History Housing: Apartment Alcohol intake: never Patient Tobacco Use Status: Never used Tobacco e-Cigarette/Vaping Use: Never Used Second Hand Smoke Exposure: No service: No Current occupational status: disabled Cognitive needs: Yes (Pt has a walker) Hearing needs: No Vision needs: Yes (Blurred vision) Review of Systems Const All systems reviewed & are unremarkable except as noted in HPI and below Physical Exam Vital Signs: Last Vital Signs Temp 97.6 F 09/26/23 13:18 Pulse 75 09/26/23 13:18 Pulse Ox 99 09/26/23 13:18 Const General: cooperative Orientation/consciousness: patient oriented x3 HEENT Head: Yes normal to inspection Mouth: Normal oral and palatal mucosa present Eyes General: appearance normal, both eyes and all related structures Pupils: Equal, round and reactive pupils present Resp Effort & Inspection: normal respiratory effort Cardio Rate: regular rate Rhythm: regular rhythm GI Palpation (GI): Soft to palpation and nontender General: Yes no CVA tenderness Back/Spine/Pelvis Back: no CVA tenderness Skin General skin exam: no rashes or lesions noted Neuro General: patient oriented x3 Cranial nerves: Yes CN's II-XII intact bilaterally and Yes Equal, round and reactive pupils present Extrem General: Yes normal to inspection Psych Appearance: grossly normal Assessment & Plan Assessment & Plan (1) Bacteriuria, chronic: Comment: He has no symptoms at this time. He is likely chronically colonized. Code(s): R82.71 - Bacteriuria Plan: Would not give antibiotics at this time. He finished course of fosfomycin and has no pelvic pain of significance.no hematuria or fever. Would not check further cultures unless symptoms. Coding Level of Care Code New Pt Level 3 (38093) Diagnoses Bacteriuria, chronic R82.71
== END 2023-09-26 13:34 | disposition home or self-care (01) ==
LOC: HO.HID 13:12
PROVIDERS: PCP Internal Medicine; Visit Provider Internal Medicine
DX: R82.71 Bacteriuria (principal)
CPT/HCPCS: 99203

== ENCOUNTER → 2023-09-26 13:11 | Outpatient (BNVA) | payer MEDICARE, MEDICAID, SELFPAY | PROVIDERS: PCP Internal Medicine; Visit Provider Internal Medicine | DX: R82.71 Bacteriuria (principal) | CPT/HCPCS: 99202 ==

== ENCOUNTER → 2024-01-19 23:59 | Outpatient (BNV) | payer MEDICARE, MEDICAID, SELFPAY | PROVIDERS: PCP Internal Medicine; Visit Provider Internal Medicine | DX: N39.0 Urinary tract infection, site not specified (principal); E11.9 Type 2 diabetes mellitus without complications; R33.8 Other retention of urine | CPT/HCPCS: G0180 ==

== ENCOUNTER → 2024-01-25 23:59 | Outpatient (BNV) | payer MEDICARE, MEDICAID, SELFPAY | PROVIDERS: PCP Internal Medicine; Visit Provider Internal Medicine | DX: N39.0 Urinary tract infection, site not specified (principal); E11.9 Type 2 diabetes mellitus without complications; I25.10 Atherosclerotic heart disease of native coronary artery without angina pectoris | CPT/HCPCS: G0180 ==

== ENCOUNTER → 2024-03-14 23:59 | Outpatient (BNV) | payer MEDICARE, MEDICAID, SELFPAY | PROVIDERS: PCP Internal Medicine; Visit Provider Internal Medicine | DX: L89.151 Pressure ulcer of sacral region, stage 1 (principal); Z48.00 Encounter for change or removal of nonsurgical wound dressing; T83.511A Infection and inflammatory reaction due to indwelling urethral catheter, initial encounter; E11.9 Type 2 diabetes mellitus without complications | CPT/HCPCS: G0180 ==

== ENCOUNTER 2024-03-16 10:29 | Outpatient (AMB) | payer MEDICARE, MEDICAID, SELFPAY ==
--- NOTE | 2024-03-16 10:29 | A.OFFPC_ITS ---
Intake Visit Reasons: [facility] 02/06~ [phone] Policy Writer Typist Required: No Accompanied by: Self / Same As Patient Allergies Penicillins Allergy (Intermediate, Verified 03/16/24 10:30) ITCHING/SWELLING Medication List - Last Reconciled 03/16/24 by Neri Mena MD [adult briefs As directed] [adult pull ups As directed] albuterol sulfate 90 mcg/actuation (Ventolin HFA) 2 puffs inhalation Q4-6H PRN 30 days alcohol swabs 1 pad topical QID amlodipine 5 mg PO DAILY ascorbic acid (vitamin C) 500 mg PO DAILY aspirin 1 tab PO DAILY blood pressure monitor (Blood Pressure Kit) As directed blood sugar diagnostic (FreeStyle Lite Strips) USE TO CHECK TWICE DAILY blood-glucose meter As directed carvedilol 6.25 mg PO BID chair, wheel (Wheel chair) As directed [chux pads As directed] ciprofloxacin HCl (Cipro) 250 mg PO BID clopidogrel (Plavix) 75 mg PO DAILY clotrimazole-betamethasone 1-0.05 % 1 appl topical BID 2 weeks dapagliflozin propanediol (Farxiga) 10 mg PO DAILY docusate sodium 100 mg PO BID doxycycline hyclate 100 mg PO BID 7 days fosfomycin tromethamine 1 packet PO Q3D 2 doses furosemide 20 mg PO DAILY Grab bar As directed hospital bed As directed hydralazine 25 mg PO DAILY hydrochlorothiazide 25 mg PO DAILY hydrocortisone 2.5% (Anusol-HC) 1 appl VA BID-QID PRN insulin aspart U-100 5 units subcut q 6 hours; insulin detemir U-100 70 units (0.7 mL) subcut DAILY insulin glargine (Lantus U-100 Insulin) 70 units (0.7 mL) subcut QPM levofloxacin 500 mg PO DAILY 7 days lidocaine 5% 1 patch topical DAILY lisinopril 10 mg PO DAILY metoprolol tartrate 25 mg PO DAILY multivitamin with folic acid 400 mcg (Tab-A-Bob) 1 tab PO DAILY nitrofurantoin macrocrystal 100 mg PO BID 7 days omeprazole 40 mg PO DAILY ondansetron HCl 4 mg PO Q6H PRN oxycodone-acetaminophen 5-325 mg 1 tab PO Q8H PRN pen needle, diabetic As directed polyethylene glycol 3350 (Miralax) 17 grams PO DAILY pregabalin 150 mg PO BID [shower bench As directed] silver sulfadiazine 1% appl topical DAILY Slide Board As directed Slide Board As directed sulfamethoxazole-trimethoprim 800-160 mg (Bactrim DS) 1 tab PO BID tamsulosin 0.4 mg PO DAILY ticagrelor (Brilinta) 90 mg PO BID Transfer Bench As directed Tobacco use date assessed: 08/31/23 Dental Screening Dental Screen Date: 08/31/23 HPI [facility] 02/06~ [phone] HPI Details chronic back pain with neuropathy; doing well on rx; compliant [facility] Medical History (Updated 10/02/23 @ 17:12 by Carlita Templeton MD) Bacteriuria, chronic Knee pain, bilateral Back pain Obesity Diabetes mellitus with neuropathy Diabetes mellitus Constipation Hyperlipidemia Surgical History History of total right knee replacement (~2012) History of neck surgery History of hemorrhoidectomy History of surgery History of CVA (cerebrovascular accident) History of tympanoplasty Family History Father Medical history unknown Mother HIV (human immunodeficiency virus infection) Social History Housing: Apartment Alcohol intake: never Patient Tobacco Use Status: Never used Tobacco Tobacco use type: Cigarette e-Cigarette/Vaping Use: Never Used Second Hand Smoke Exposure: No service: No Current occupational status: disabled Cognitive needs: Yes (Pt has a walker) Hearing needs: No Vision needs: Yes (Blurred vision) Questionnaire Thrive Questionnaire Date Thrive assessed: 08/31/23 KAILEE-7 AMB Questionnaire KAILEE-7 Date KAILEE - 7 assessed: 08/31/23 Source: Developed by Drs. Kyle Morin, Sarika Reardon, Hubert Nicholas and colleagues, with an educational luis from [employer]. Review of Systems Const Denies chills, Denies headache(s) and Denies weight loss ENT Denies headache(s) Card Denies chest pain, Denies syncope, Denies irregular heart rhythm and Denies dyspnea Resp Denies chest congestion, Denies cough and Denies dyspnea GI Denies abdominal pain, Denies change in stool character, Denies nausea and Denies vomiting Musc Denies deformity and Denies joint swelling Neuro Denies syncope and Denies headache(s) Physical exam (Primary Care) Tobacco/Smoking Status: Tobacco use Status Tobacco use date assessed 08/31/23 03/16/24 10:31 Patient Tobacco Use Status Never used Tobacco 03/16/24 10:31 Tobacco use type Cigarette 03/16/24 10:31 e-Cigarette/Vaping Use Never Used 03/16/24 10:31 Thrive Assessment: Date of Thrive Assessment Date Thrive assessed 08/31/23 03/16/24 10:31 Telehealth Telehealth Telehealth Platform: Telephone Location of provider rendering services: practice address Location of patient: address on file Patient Identification confirmed using: Name, : Yes Telehealth method: voice only Patient verbally consented to treatment: Yes Patient verbally consented to billing insurance company: Yes Patient informed of any privacy concerns related to visit: Yes Minutes spent on Phone/Video with Pt.: 15 (te;ephone) Assessment and Plan Assessment & Plan (1) Back pain: Code(s): M54.9 - Dorsalgia, unspecified Plan: stable; same rx Medications: Refilled oxycodone-acetaminophen 5-325 mg 1 tab PO Q8H PRN 90 tabs 0RF pain pregabalin 150 mg PO BID 60 caps 0RF Coding Level of Care Code Tele Est Pt Level 3 (73185) Diagnoses Back pain M54.9
== END 2024-03-16 11:40 | disposition home or self-care (01) ==
LOC: HO.HMGH 10:29
PROVIDERS: PCP Internal Medicine; Visit Provider Internal Medicine
DX: M54.9 Dorsalgia, unspecified (principal)
CPT/HCPCS: 99442

== ENCOUNTER 2024-04-20 13:31 | Outpatient (AMB) | payer MEDICAID, SELFPAY ==
--- NOTE | 2024-04-20 13:38 | MHC.PC.OV ---
Vital Signs 04/20/24 13:39 Height 5 ft 2 in Weight 175 lb BMI 32.0 BP 122/66 Blood Pressure Location Rt brachial Position Sitting Pulse 58 Pulse Source Pulse Oximeter Pulse Oximetry (%) 98 Oxygen Delivery Method Room Air Intake Visit Reasons: ED 04/09 uti Intake Note: Patient is here to follow-up after a visit the emergency department at [facility] on 04/09/24 Shingle Carrier Required: No Director Wholesale: Not Required per policy Accompanied by: Self / Same As Patient Allergies Penicillins Allergy (Intermediate, Verified 04/20/24 13:39) ITCHING/SWELLING Medication List - Last Reconciled 04/20/24 by Neri Mena MD [adult briefs As directed] [adult pull ups As directed] albuterol sulfate 90 mcg/actuation (Ventolin HFA) 2 puffs inhalation Q4-6H PRN 30 days alcohol swabs 1 pad topical QID amlodipine 5 mg PO DAILY apixaban (Eliquis) 5 mg PO BID ascorbic acid (vitamin C) 500 mg PO DAILY aspirin 1 tab PO DAILY blood pressure monitor (Blood Pressure Kit) As directed blood sugar diagnostic (FreeStyle Lite Strips) USE TO CHECK TWICE DAILY blood-glucose meter As directed carvedilol 6.25 mg PO BID chair, wheel (Wheel chair) As directed [chux pads As directed] ciprofloxacin HCl (Cipro) 250 mg PO BID clopidogrel (Plavix) 75 mg PO DAILY clotrimazole-betamethasone 1-0.05 % 1 appl topical BID 2 weeks dapagliflozin propanediol (Farxiga) 10 mg PO DAILY docusate sodium 100 mg PO BID doxycycline hyclate 100 mg PO BID 7 days fosfomycin tromethamine 1 packet PO Q3D 2 doses furosemide 20 mg PO DAILY Grab bar As directed hospital bed As directed hydralazine 25 mg PO DAILY hydrochlorothiazide 25 mg PO DAILY hydrocortisone 2.5% (Anusol-HC) 1 appl MS BID-QID PRN insulin aspart U-100 5 units subcut q 6 hours; insulin detemir U-100 70 units (0.7 mL) subcut DAILY insulin glargine (Lantus U-100 Insulin) 70 units (0.7 mL) subcut QPM levofloxacin 500 mg PO DAILY 7 days lidocaine 5% 1 patch topical DAILY lisinopril 10 mg PO DAILY metoprolol tartrate 25 mg PO DAILY multivitamin with folic acid 400 mcg (Tab-A-Bob) 1 tab PO DAILY nitrofurantoin macrocrystal 100 mg PO BID 7 days nystatin (Nystop) topical omeprazole 40 mg PO DAILY ondansetron HCl 4 mg PO Q6H PRN oxycodone-acetaminophen 5-325 mg 1 tab PO Q8H PRN pen needle, diabetic As directed polyethylene glycol 3350 (Miralax) 17 grams PO DAILY pregabalin 150 mg PO BID [shower bench As directed] silver sulfadiazine 1% appl topical DAILY Slide Board As directed Slide Board As directed sulfamethoxazole-trimethoprim 800-160 mg (Bactrim DS) 1 tab PO BID tamsulosin 0.4 mg PO DAILY ticagrelor (Brilinta) 90 mg PO BID ticagrelor (Brilinta) 60 mg PO BID Transfer Bench As directed Tobacco use date assessed: 04/20/24 Dental Screening Dental Screen Date: 08/31/23 HPI ED 04/09 uti HPI Details has an indwellin catheter and being treated for a uti [facility] Medical History (Updated 10/02/23 @ 17:12 by Carlita Templeton MD) Bacteriuria, chronic Knee pain, bilateral Back pain Obesity Diabetes mellitus with neuropathy Diabetes mellitus Constipation Hyperlipidemia Surgical History (Updated 04/20/24 @ 13:46 by LARISSA Alberts) History of total right knee replacement (~2012) History of neck surgery History of hemorrhoidectomy History of surgery History of CVA (cerebrovascular accident) History of tympanoplasty Family History Father Medical history unknown Mother HIV (human immunodeficiency virus infection) Social History Housing: Apartment Alcohol intake: never Patient Tobacco Use Status: Former Tobacco user Tobacco use type: Cigarette e-Cigarette/Vaping Use: Never Used Second Hand Smoke Exposure: No service: No Current occupational status: disabled Cognitive needs: Yes (Pt has a walker) Hearing needs: No Vision needs: Yes (Blurred vision) Questionnaire Thrive Questionnaire Date Thrive assessed: 08/31/23 KAILEE-7 AMB Questionnaire KAILEE-7 Date KAILEE - 7 assessed: 08/31/23 Source: Developed by Drs. Kyle Morin, Sarika Reardon, Hubert Nicholas and colleagues, with an educational luis from [employer]. Review of Systems Const Denies chills, Denies headache(s) and Denies weight loss ENT Denies headache(s) Card Denies chest pain, Denies syncope, Denies irregular heart rhythm and Denies dyspnea Resp Denies chest congestion, Denies cough and Denies dyspnea GI Denies abdominal pain, Denies change in stool character, Denies nausea and Denies vomiting Musc Denies deformity and Denies joint swelling Neuro Denies syncope and Denies headache(s) Physical exam (Primary Care) Vital Signs: Last Vital Signs Pulse 58 04/20/24 13:39 BP 122/66 04/20/24 13:39 Pulse Ox 98 04/20/24 13:39 Oxygen Delivery Method Room Air 04/20/24 13:39 BMI result Body Mass Index 32.0 Tobacco/Smoking Status: Tobacco use Status Tobacco use date assessed 04/20/24 04/20/24 13:48 Patient Tobacco Use Status Former Tobacco user 04/20/24 13:48 Tobacco use type Cigarette 04/20/24 13:48 e-Cigarette/Vaping Use Never Used 04/20/24 13:48 Thrive Assessment: Date of Thrive Assessment Date Thrive assessed 08/31/23 04/20/24 13:48 Const General: cooperative, comfortable, no acute distress and alert Neck Neck: Yes no lymphadenopathy Thyroid: Thyroid normal Resp Effort & Inspection: normal respiratory effort Auscultation: clear to auscultation bilaterally Percussion: percussion normal Cardio Jugular venous distension: no JVD Palpation: normal PMI Rate: regular rate Rhythm: regular rhythm Heart sounds: S1 normal heart sound present and S2 normal heart sound present GI Inspection: Yes normal to inspection Palpation (GI): No hepatosplenomegaly present Skin General skin exam: no rashes or lesions noted Extrem General: Yes no clubbing, cyanosis or edema Office Procedures Flu Questionnaire Does the patient have a severe egg allergy?: No Does the patient have severe life threatening allergies?: No Does the patient have a fever or illness today?: No Has the patient ever had Guillain-[place] Syndrome?: No Has the patient ever had any past reaction to a flu shot?: No Immunizations Fluarix Triv [id number] (PF) 45 mcg (15 mcg x 3)/0.5 mL IM syringe Performing Provider: Neri Mena MD [facility] Administered by: DANELLE Chong on 04/20/24 14:02 Dose Route Admin Location Dispensed Lot Number Expiration Date NDC Sewing Trimmer 0.5 mL IM Left Deltoid 0.5 mL [id number] 12/31/24 [id number] [employer] VIS Given Date VIS Provided VIS Publication Date 04/20/24 Single Vaccine 21 Eligibility Eligibility Date Funding Source Not [facility] Eligible 04/20/24 Private Coding Level of Care Code Est Pt Level 3 (19048) Diagnoses UTI (urinary tract infection) N39.0 Assessment & Plan Assessment & Plan (1) UTI (urinary tract infection): Code(s): N39.0 - Urinary tract infection, site not specified Plan: finish rx Orders: Orders Influenza [id number] Immunization Today Z23 - Encounter for immunization
[2024-04-20 13:39] VITALS: BP 122/66; PULSE 58; O2SAT 98; BMI 32.0
== END 2024-04-20 14:02 | disposition home or self-care (01) ==
PROVIDERS: PCP Internal Medicine; Visit Provider Internal Medicine
DX: Z23 Encounter for immunization (principal); N39.0 Urinary tract infection, site not specified

== ENCOUNTER → 2024-04-20 13:31 | Outpatient (BNVA) | payer MEDICARE, MEDICAID, SELFPAY | PROVIDERS: PCP Internal Medicine; Visit Provider Internal Medicine | DX: N39.0 Urinary tract infection, site not specified (principal); Z23 Encounter for immunization | CPT/HCPCS: 90471; 90656; 99212 ==

== ENCOUNTER → 2024-09-19 23:59 | Outpatient (BNV) | payer MEDICARE, MEDICAID, SELFPAY | PROVIDERS: PCP Internal Medicine; Visit Provider Internal Medicine | DX: I69.354 Hemiplegia and hemiparesis following cerebral infarction affecting left non-dominant side (principal); E11.40 Type 2 diabetes mellitus with diabetic neuropathy, unspecified | CPT/HCPCS: G0179 ==

== ENCOUNTER 2024-11-09 13:50 | Outpatient (AMB) | payer MEDICARE, MEDICAID, SELFPAY ==
--- NOTE | 2024-11-09 13:53 | A.OFFPC_ITS ---
Vital Signs 11/09/24 13:55 Height 5 ft 2 in Weight 170 lb BMI 31.1 BP 120/64 Blood Pressure Location Rt brachial Position Sitting Pulse 70 Pulse Source Pulse Oximeter Temp 96.9 F Temp Source Temporal Artery Scan Pulse Oximetry (%) 98 Oxygen Delivery Method Room Air Intake Visit Reasons: [facility] 10/26 heart attack Intake Note: Patient is here for hospital discharge follow up. Patient was discharged from [facility] on 10/26/24. Gas Prover Required: No Professional Bass Fisher: Present Accompanied by: Spouse Allergies Penicillins Allergy (Intermediate, Verified 11/09/24 13:54) ITCHING/SWELLING Tobacco use date assessed: 11/09/24 Dental Screening Dental Screen Date: 11/09/24 Did you have a dental visit in the last 12 months?: Yes Did you have a dental problem in the last 6 months where you did not have access to dental care?: No Was dental information given to patient?: Patient has dentist HPI HPI Comments History of Present Illness Details 64 y/o Male patient who presents to the clinic for HDF. Pmhx significant for Distal RCA PCI, HFpEF, Aortic Stenosis with Left-sided residual weakness, paraplegia, T2DM, seizure disorder, H/o PE on Eliquis, Chronic Still Catheter with recurrent UTIs. He was admitted at [facility] on 10/17 - 10/21 for Recurrent UTI. He was prescribed Bactrim for 2 days. It is not clear why he has Still Catheter I used to see Urology in the past, because I could not pee, and they put the Catheter in ~ 1 year ago . Pt has not followed back with Urology - he has missed couple of appointments with them. Patient has missed multiple appointments due to lack of Transportation. Pt reports chronic pain syndrome and takes Oxycodone. Pt asking for medication refill. Pt reports that he was given Keppra in the hospital, and now it has been 2 weeks without the medication. No Keppra listed on his active medication list. [facility] Medical History (Updated 11/09/24 @ 14:31 by Shahla Delgado NP) Bacteriuria, chronic Knee pain, bilateral Back pain Obesity Diabetes mellitus with neuropathy Diabetes mellitus Constipation Hyperlipidemia Surgical History History of total right knee replacement (~2012) History of neck surgery History of hemorrhoidectomy History of surgery History of CVA (cerebrovascular accident) History of tympanoplasty Family History Father Medical history unknown Mother HIV (human immunodeficiency virus infection) Social History Housing: Apartment Alcohol intake: never Patient Tobacco Use Status: Former Tobacco user Tobacco use type: Cigarette e-Cigarette/Vaping Use: Never Used Second Hand Smoke Exposure: Yes service: No Current occupational status: disabled Cognitive needs: Yes (walker, Power Wheelchair) Hearing needs: No Vision needs: Yes (Blurred vision) Questionnaire PHQ-9 Over the last 2 weeks, how often have you been bothered by any of the following problems? 1. Little interest or pleasure in doing things: not at all 2. Feeling down, depressed, or hopeless: nearly every day 3. Trouble falling or staying asleep, or sleeping too much: nearly every day 4. Feeling tired or having little energy: nearly every day 5. Poor appetite or overeating: nearly every day 6. Feeling bad about yourself - or that you are a failure or have let yourself or your family down: nearly every day 7. Trouble concentrating on things, such as reading the newspaper or watching television: nearly every day 8. Moving or speaking so slowly that other people could have noticed. Or the opposite - being so fidgety or restless that you have been moving around a lot more than usual: more than half the days 9. Thoughts that you would be better off or of hurting yourself in some way: not at all Total score: 20 Depression Screening Interpretation: Positive Depression Screening Done: Yes Source: Developed by Drs. Kyle Morin, Sarika Reardon, Hubert Nicholas and colleagues, with an educational luis from [employer]. Thrive Questionnaire Date Thrive assessed: 11/09/24 I am a: Patient What is your living situation today?: I have a steady place to live Within the past 12 months, did the food you bought not last and you didn't have the money to get more?: Sometimes True Within the past 12 months, did you worry whether your food would run out before you got money to buy more?: Sometimes True Do you have trouble paying for medicines?: No Do you have trouble getting transportation to medical appointments?: Yes Do you have trouble paying your heating and electricity bill?: No Do you have trouble taking care of your child, family member or friend?: No Do you have trouble with day-to-day activities such as bathing, preparing meals, shopping, managing finances, etc.?: Yes Are you currently unemployed and looking for a job?: No Are you interested in more education?: No Please select the resources that you would like help with: Housing/Alf, Transportation and Care for elder or disabled Currently or been in a relationship where the following occur: No concerns reported THRIVE Score: 3 AUDIT C Alcohol Use Questionnaire (AUDIT-C) 1. How often do you have a drink containing alcohol?: Never Total Score: 0 KAILEE-7 AMB Questionnaire KAILEE-7 Date KAILEE - 7 assessed: 11/09/24 Feeling nervous, anxious, or on edge: 1 = Several days Not being able to stop or control worryin = Nearly every day Worrying too much about different things: 1 = Several days Trouble relaxin = Several days Being so restless that it is hard to sit still: 1 = Several days Becoming easily annoyed or irritable: 3 = Nearly every day Feeling afraid as if something awful might happen: 3 = Nearly every day Total KAILEE-7 score (0-4 normal; 5-9 mild; 10-14 moderate; 15-21 severe): 13 Source: Developed by Drs. Kyle Morin, Sarika Reardon, Hubert Nicholas and colleagues, with an educational luis from [employer]. Review of Systems Const All systems reviewed & are unremarkable except as noted in HPI and below Physical exam (Primary Care) Vital Signs: Last Vital Signs Temp 96.9 F 11/09/24 13:55 Pulse 70 11/09/24 13:55 BP 120/64 11/09/24 13:55 Pulse Ox 98 11/09/24 13:55 Oxygen Delivery Method Room Air 11/09/24 13:55 BMI result Body Mass Index 31.1 Tobacco/Smoking Status: Tobacco use Status Tobacco use date assessed 11/09/24 11/09/24 14:07 Patient Tobacco Use Status Former Tobacco user 11/09/24 14:07 Tobacco use type Cigarette 11/09/24 14:07 e-Cigarette/Vaping Use Never Used 11/09/24 14:07 PHQ-9: PHQ-9 Score PHQ-9: Total score 20 11/09/24 14:31 Depression Screening Interpretation: Positive Thrive Assessment: Date of Thrive Assessment Date Thrive assessed 11/09/24 11/09/24 14:07 Currently or been in a relationship where the following occur: No concerns reported Const General: no acute distress Orientation/consciousness: patient oriented x3 Limitations: wheelchair Resp Effort & Inspection: normal respiratory effort Auscultation: clear to auscultation bilaterally Cardio Heart sounds: S1 normal heart sound present and S2 normal heart sound present Neuro General: patient oriented x3 Psych Speech and movement: Normal speech and movement present Coding Level of Care Code Est Pt Level 4 (85996) Diagnoses Bacteriuria, chronic R82.71 Time Spent (min) 20 Assessment & Plan Assessment & Plan (1) Bacteriuria, chronic: Code(s): R82.71 - Bacteriuria Category: Medical Plan: Placed referral to Urology. Ordered Bactrim for 2 additional days. Will assist Patient in getting PT1 Orders: Referrals Urology Referral R82.71 - Bacteriuria Medications: New sulfamethoxazole-trimethoprim 800-160 mg (Bactrim DS) 1 tab PO Q12H 2 days 4 tabs 0RF R82.71 - Bacteriuria levetiracetam 1,000 mg PO DAILY 30 tabs 0RF R56.9 - Unspecified convulsions Discontinued nitrofurantoin macrocrystal must administer with a meal/food Discontinued Reason: Patient no longer taking 100 mg PO BID 7 days 14 caps 0RF
[2024-11-09 13:55] VITALS: BP 120/64; PULSE 70; TEMP 36.1; O2SAT 98; BMI 31.1
--- OUTSIDE RECORDS SUMMARY | 2024-11-09 13:55 | XMS_ITS | Clinical Summary ---
Author Organization [facility] [employer] [facility] Address [address] [place] [address] Care Team Providers Care Tubular Stock Glass Bulb Machine Former Name Role Phone Unavailable Primary Care Provider Unavailabl e Social History Tobacco Use Types Packs/Day Years Used Date Smoking Tobacco: Never Assessed Sex and Gender Information Value Date Recorded Sex Assigned at Not on file Gender Identity Not on file Sexual Orientation Not on file Job Start Date Occupation Industry Not on file Not on file Not on file Plan of Treatment Not on file
--- OUTSIDE RECORDS SUMMARY | 2024-11-09 13:55 | XMS_ITS | Clinical Summary ---
Author Organization [facility] Facility Address [address] [address] Care Team Providers Care Quality Improvement Manager Name Role Phone Unavailable Primary Care Provider Unavailabl e Allergies Active Allergy Reactions Criticality Noted Date Comments Penicillins Other (see comments) Medium 01/05/2018 Medications albuterol (5 MG/ML) 0.5% nebulizer solution Active Albuterol Sulfate (ProAir RespiClick) 108 (90 Base) MCG/ACT aerosol powder Active amLODIPine (NORVASC) 10 MG tablet Take 1 tablet by mouth 1 (one) time each day Active Ascorbic Acid (vitamin C) 500 MG tablet Take 500 mg by mouth 1 (one) time each day 02/04/20 23 Active Aspirin Low Dose 81 MG chewable tablet CHEW AND SWALLOW 1 TABLET BY MOUTH EVERY DAY 02/04/20 23 Active ciprofloxacin (CIPRO) 250 MG tablet Take 250 mg by mouth in the morning and 250 mg in the evening. 02/19/20 23 Active cyclobenzaprine (FLEXERIL) 10 MG tablet Active Farxiga 10 MG tablet Take by mouth 1 (one) time each day 02/10/20 23 Active docusate sodium (COLACE) 100 MG capsule Take 100 mg by mouth in the morning and 100 mg in the evening. 01/19/20 23 Active Canagliflozin (Invokana) 300 MG tablet Take 1 tablet by mouth 1 (one) time each day Active carvedilol (COREG) 6.25 MG tablet Take 6.25 mg by mouth every 12 (twelve) hours 02/03/20 23 Active cefpodoxime (VANTIN) 200 MG tablet Take 200 mg by mouth in the morning and 200 mg in the evening. 12/07/19 23 Active atorvastatin (LIPITOR) 80 MG tablet Take 80 mg by mouth 1 (one) time each day 02/04/20 23 Active esomeprazole (NexIUM) [address] capsule Take 1 capsule by mouth 1 (one) time each day Active furosemide (LASIX) 20 MG tablet Take 20 mg by mouth 1 (one) time each day 02/04/20 23 Active Anucort-HC 25 MG suppository INSERT 1 SUPPOSITORY RECTALLY TWICE DAILY 01/02/20 23 Active Hydrocortisone, Perianal, 2.5 % cream APPLY RECTALLY TO THE AFFECTED AREA 2 TO 4 TIMES A DAY NEEDED FOR HEMORRHOIDS 02/17/20 23 Active hydroCHLOROthia zide 12.5 MG tablet 12/21/19 23 Active glipiZIDE (GLUCOTROL) 10 MG tablet Take 1 tablet by mouth 1 (one) time each day Active insulin aspart (NovoLOG) 100 UNIT/ML injection Inject 30 Units under the skin in the morning and 30 Units in the evening and 30 Units before bedtime. Active Levemir FlexPen 100 UNIT/ML injection INJECT 70 UNITS UNDER THE SKIN DAILY 02/04/20 23 Active lactulose (CHRONULAC) 10 GM/15ML solution GIVE 30 ML BY MOUTH DAILY NEEDED FOR CONSTIPATION MAY TAKE FOUR TIMES DAILY NEEDED 01/02/20 23 Active metroNIDAZOLE (FLAGYL) 500 MG tablet TAKE 1 TABLET BY MOUTH THREE TIMES A DAY FOR 2 DAYS 11/24/19 23 Active Multiple Vitamin (Tab-A-Bob) tablet Take 1 tablet by mouth 1 (one) time each day 02/04/20 23 Active nitroglycerin (Nitrostat) 0.4 MG SL tablet Active omeprazole (PriLOSEC) [address] capsule Take 40 mg by mouth 1 (one) time each day 02/04/20 23 Active ondansetron ODT (ZOFRAN-ODT) 4 MG dispersible tablet DISSOLVE 1 TABLET ON THE TONGUE EVERY 6 TO 8 HOURS NEEDED FOR NAUSEA OR VOMITING 12/06/19 23 Active oxyCODONE (OXY-IR) 5 MG immediate release capsule TAKE 1 CAPSULE BY MOUTH THREE TIMES DAILY FOR 3 DAYS NEEDED FOR PAIN 12/26/19 23 Active pregabalin (LYRICA) 150 MG capsule Take 150 mg by mouth in the morning and 150 mg in the evening. 02/09/20 23 Active ranolazine (RANEXA) 500 MG 12 hr tablet Take 500 mg by mouth in the morning and 500 mg in the evening. 12/15/19 23 Active spironolactone (ALDACTONE) 25 MG tablet 1 tablet 1 (one) time each day 09/23/19 16 Active Brilinta 90 MG tablet Take 90 mg by mouth in the morning and 90 mg in the evening. 02/15/20 23 Active torsemide (DEMADEX) 20 MG tablet Take 40 mg by mouth 1 (one) time each day 02/06/20 23 Active rosuvastatin (CRESTOR) 20 MG tablet Take 20 mg by mouth 1 (one) time each day 11/24/19 23 Active meclizine (ANTIVERT) 12.5 MG tablet Take 1 tablet by mouth in the morning and 1 tablet in the evening and 1 tablet before bedtime. Active lisinopril 5 MG tablet TAKE 1 TABLET BY MOUTH DAILY. DOSE DECREASED 02/03/20 Active lidocaine (LIDODERM) 5 % patch APPLY 1 PATCH TOPICALLY TO THE SKIN DAILY. LEAVE ON MOST PAINFUL AREA FOR UP TO 12 HOURS 02/09/20 Active levoFLOXacin (LEVAQUIN) 750 MG tablet TAKE 1 TABLET BY MOUTH EVERY 24 HOURS FOR 4 DAYS 01/12/20 Active insulin glargine (Lantus SoloStar) 100 UNIT/ML injection Comments: Patient Notes: INJECT 100 UNITS ONCE A DAY SUBCUTANEOUSLY Duration: 45 Active Active Problems Problem Noted Date Diagnosed Date Benign essential hypertension 02/23/2023 Chronic kidney disease stage 2 02/23/2023 0 02/23/2023 Proteinuria 02/23/2023 02/23/2023 Renal disorder due to type 2 diabetes mellitus 0 02/23/2023 02/23/2023 Social History Tobacco Use Types Packs/Day Years Used Date Smoking Tobacco: Former Cigarettes Smokeless Tobacco: Never Tobacco Cessation:Counseling Given: No Comments:Smoking History Info:Every day Alcohol Use Standard Drinks/Week Comments No 0 (1 standard drink = 0.6 oz pur e alcohol) Sex and Gender Information Value Date Recorded Sex Assigned at Not on file Legal Sex Male 5:01 PM EST Gender Identity Not on file Sexual Orientation Not on file Last Filed Vital Signs Vital Sign Reading Time Taken Comments Blood Pressure 110/64 02/23/2023 3:18 PM EDT Pulse 89 02/23/2023 3:18 PM EDT Temperature - - Respiratory Rate - - Oxygen Saturation 99% 02/23/2023 3:18 PM EDT Inhaled Oxygen Concentration - - Weight 70.8 kg (156 lb) 02/23/2023 3:18 PM EDT Height - - Body Mass Index - - Plan of Treatment Health Maintenance Due Date Last Done Comments Pneumococcal Vaccine: 50+ Ye ars (1 of 2 - PCV) 1980 Colorectal Cancer Screening: Annual FOBT 2010 Colorectal Cancer Screening: Colonoscopy 2010 Colorectal Cancer Screening: Sigmoidoscopy 2010 Diabetes: Hemoglobin A1C 08/03/2020 Diabetes: Ophthalmology Exam 08/03/2020 Diabetes: Pedal Pulse Checked 08/03/2020 Diabetes: Sensory Foot Exam 08/03/2020 Diabetes: Visual Foot Exam 08/03/2020 Influenza Vaccine (Season Ended) 2025 Hepatitis B Vaccine Aged Out No longe r eligible based on patient's age to complete this topic Insurance Medicare [place]
== END 2024-11-09 14:52 | disposition home or self-care (01) ==
LOC: HO.HMCH 13:52
PROVIDERS: PCP Internal Medicine; Visit Provider Nurse Practitioner Family
DX: R82.71 Bacteriuria (principal)

== ENCOUNTER → 2024-11-09 13:50 | Outpatient (BNVA) | payer MEDICARE, MEDICAID, SELFPAY | PROVIDERS: PCP Internal Medicine; Visit Provider Nurse Practitioner Family | DX: R82.71 Bacteriuria (principal) | CPT/HCPCS: 99212 ==